=== PATIENT | male | born 1990 | race Caucasian/White ===

== ENCOUNTER 2016-06-05 12:32 | Inpatient (IN) | payer OTHER ==
[~2016-06-05] VITALS: Ht 182.9 cm; Wt 98.4 kg
[2016-06-05 13:10] LABS: MEAN CORPUSCULAR HEMOGLOBIN 29.6 pg (27.0-33.0); MEAN CORPUSCULAR HGB CONC 33.2 g/dl (32.0-36.5); MEAN CORPUSCULAR VOLUME 89.2 fl (80.0-96.0); RED CELL DISTRIBUTION WIDTH 12.3 % (11.5-14.5); WHITE BLOOD COUNT 5.4 K/mm3 (4.0-10.0)
[2016-06-05 13:23] LABS: AMPHETAMINES LEVEL URINE NEGATIVE (NEGATIVE); BENZODIAZEPINES URINE NEGATIVE (NEGATIVE); COCAINE METABOLITE URINE NEGATIVE (NEGATIVE); CONTROL LINE INT CTR LINE PRESENT; METHADONE URINE NEGATIVE (NEGATIVE); OPIATES URINE NEGATIVE (NEGATIVE); TRICYCLIC ANTIDEPRESS URINE NEGATIVE (NEGATIVE)
[2016-06-05 13:53] LABS: ALBUMIN 4.1 GM/DL (3.2-5.2); ALBUMIN/GLOBULIN RATIO 1.14 (1.00-1.93); ALKALINE PHOSPHATASE 85 U/L (45-117); ALT/SGPT 43 U/L (12-78); ANION GAP 9 MEQ/L (8-16); AST/SGOT 41 U/L (15-37); BILIRUBIN,DIRECT 0.1 MG/DL (0.0-0.2); BILIRUBIN,TOTAL 0.5 MG/DL (0.2-1.0); BLOOD UREA NITROGEN 13 MG/DL (7-18); CALCIUM LEVEL 8.8 MG/DL (8.5-10.1); CARBON DIOXIDE LEVEL 28 MEQ/L (21-32); CHLORIDE LEVEL 106 MEQ/L (98-107); GLOMERULAR FILTRATION RATE > 60.0 (>60); GLUCOSE, FASTING 61 MG/DL (70-105); POTASSIUM SERUM 4.4 MEQ/L (3.5-5.1); SODIUM LEVEL 143 MEQ/L (136-145); TOTAL PROTEIN 7.7 GM/DL (6.4-8.2)
--- NOTE | 2016-06-05 23:58 | EDDOCDS ---
Physician Documentation [facility] Name: Remy Medina Age: 26 yrs Sex: Male : 1990 Arrival Date: 06/05/2016 Time: 12:32 Bed OBSERVATION Private MD: Munira [facility] Disposition: 06/05/16 21:18 Hospitalization ordered by Tremaine Ramirez for Inpatient Admission. Preliminary diagnosis is Major depressive disorder, recurrent. - Bed requested for Admit. - Status is Inpatient Admission. ml3 - Condition is Stable. - Problem is an ongoing problem. - Symptoms are unchanged. HPI: 06/05 13:20 This 26 yrs old Male presents to ER via Walkin/Carried/Asstd with complaints pc of Psych Problem. 13:20 The history is obtained from the patient, transfer records. The patient presents to the emergency department with homicidal ideation. At their worst, the symptoms were moderate. In the emergency department, the symptoms are unchanged. 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 He was seen by [facility] and sent for evaluation. He denies feeling depressed but is frustrated. The patient has not experienced similar symptoms in the past. The patient has not recently seen a physician. Historical: - Allergies: no known allergies; - Home Meds: 1. none - PMHx: none; - PSHx: Shoulder Arthroscopy- Right; - The history from nurses notes was reviewed: and I agree with what is documented. - Social history: Smoking status: Patient uses tobacco products, current some day smoker. No barriers to communication noted, The patient speaks fluent Malay, Speaks appropriately for age. - : The pt / caregiver states he / she is not on anticoagulants. Home medication list is obtained from the patient. - Hospitalizations: : No recent hospitalization is reported. - Exposure Risk Screening:: None identified. - Immunization history:: All immunizations up-to-date. - Family history: Not pertinent. - Social history:: the patient smokes cigarettes the patient drinks alcohol. ROS: 13:20 All systems are negative except as listed. The psychiatric and neurological components pc are also addressed in the HPI. Exam: 13:20 General Appearance: alert, no acute distress. pc 13:20 ENT: ear, nose and throat normal, pharynx normal. 13:20 Eyes: pupils equal, round and reactive to light, extraocular motions intact. 13:20 Neck: The exam reveals no acute abnormalities. ROM is normal and painless. No nuchal rigidity is noted.. 13:20 Respiratory: breathing is even and unlabored, breath sounds are normal. 13:20 Cardiovascular: regular pulse rate, regular heart rhythm, normal heart sounds, equal and full pulses bilaterally. 13:20 Abdomen: soft, non-tender, no organomegaly, normal bowel sounds. 13:20 Skin: skin color is normal, warm, dry. 13:20 Extremities: The extremities have a grossly normal appearance, are non-tender, without acute ROM abnormalities. 13:20 Neuro: alert, oriented to person, place and time, cranial nerves normal as tested, no motor deficits, no sensory deficits. 13:20 Psych: affect is appropriate, mood is angry. Vital Signs: 12:34 BP 131 / 69; Pulse 61; Resp 18; Temp 98.9(O); Pulse Ox 99% on R/A; Weight 95.25 kg / ct3 209.99 lbs (R); Height 6 ft. 0 in. (182.88 cm) (R); Pain 0/10; 18:48 BP 157 / 66; Pulse 70; Resp 16; Temp 97.8(O); Pulse Ox 98% on R/A; nb2 12:34 Body Mass Index 28.48 (95.25 kg, 182.88 cm) ct3 MDM: 12:48 Consult PFS/PSA/Conference And Event Organiser: Patient's case requires discussion with on-call [facility] Psychiatrist ordered. 12:48 PSA/PFS to call Nursing Offender Employment Specialist, to enter patient data on [place] Safe Act if patient dwg involuntarily admitted or transferred for SI or HI ordered. 12:48 Confirm accurate psychiatric medication list and times of last dosage ordered. dwg 12:48 Detain Pt Until Medically/PFS Cleared ordered. dwg 12:48 REGULAR DIET PLASTIC LUQUE+DIET ordered. EDMS 12:49 Acetaminophen Level Ordered. EDMS 12:49 Basic Metabolic Profile Ordered. EDMS 12:49 Complete Blood Count Ordered. EDMS 12:50 Drug Eval Toxicology ED Only Ordered. EDMS 12:50 Ethyl Alcohol (ethanol) Ordered. EDMS 12:50 Liver Profile Ordered. EDMS 12:50 Salicylate Level Ordered. EDMS 12:50 Thyroid Stimulating Hormone Ordered. EDMS 13:20 Differential diagnosis: homicidal ideation, adjustment disorder. Plan: labs, PFS eval. pc 14:22 Acetaminophen Level Reviewed. pc 14:22 Basic Metabolic Profile Reviewed. pc 14:22 Liver Profile Reviewed. pc 14:22 Salicylate Level Reviewed. pc 14:22 Complete Blood Count Reviewed. pc 14:22 Drug Eval Toxicology ED Only Reviewed. pc 14:22 Ethyl Alcohol (ethanol) Reviewed. pc 14:22 Thyroid Stimulating Hormone Reviewed. pc 16:36 Financial registration complete. [email or web address] 17:09 [facility] Payment Agreement was scanned into [employer] and attached to record. [email or web address] 17:18 REGULAR DIET PLASTIC LUQUE+DIET ordered. EDMS 19:54 Consult PFS/PSA/Conference And Event Organiser: Patient's case requires discussion with on-call rb Psychiatrist complete. 19:54 PSA/PFS to call Nursing Offender Employment Specialist, to enter patient data [place] Safe [place] if patient rb involuntarily admitted or transferred for SI or HI complete. 20:39 Admit to [facility] LICENSE [facility]: ordered. EDMS 21:10 [facility] Legal paperwork was scanned into [employer] and attached to record. rb 21:19 BED REQUEST+ADM ordered. EDMS Signatures: Dispatcher [employer] EDMS Chung Jorgensen MD MD pc Greene, Daniel, RN RN [facility] Elke Wetzel PSA PSA rb Robbin Logan, Rolled Glass Crosscutter Unit ml3 Lupe Menjivar,RN RN kr3 Sreekanth Winston, DO cs11 Lou Burgess, Reg Reg [email or web address] The chart was reviewed and I authenticate all verbal orders and agree with the evaluation and treatment provided.Corrections: (The following items were deleted from the chart) 13:16 12:48 Consult PFS/PSA/Conference And Event Organiser ordered. [facility] Attachments: 17:09 [facility] Payment Agreement [email or web address] MTDD
--- NOTE | 2016-06-05 23:58 | EDDOCDS ---
Nurse's Notes [facility] Name: Remy Mednia Age: 26 yrs Sex: Male : 1990 Arrival Date: 06/05/2016 Time: 12:32 Bed OBSERVATION Private MD: Munira [facility] Diagnosis: Major depressive disorder, recurrent Presentation: 06/05 12:38 Presenting complaint: Patient states: is homicidal with couple people he is interested kr3 in hurting. Mental Health Triage Level: Level 2: The patient displays active homicidal ideations. Adult Sepsis Screening: The patient does not have new or worsening altered mentation. Patient's respiratory rate is less than 22. Systolic blood pressure is greater than 100. Patient has a qSOFA score of 0- Negative Sepsis Screen. Suicide/Homicide risk assessment- The patient admits to and/or has been reported to be having homicidal ideations. The patient reports that he/she has not been admitted to an inpatient mental health facility in the last 30 days. The patient reports that he/she does not have a recent or current history of substance abuse. The patient reports that he/she has no prior history of suicide attempt and/or organized plan. The patient reports that he/she has not experienced a significant life altering event in the last 30 days. 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 Transition of care: patient was not received from another setting of care. 12:38 Method Of Arrival: Walkin/Carried/Asstd kr3 12:38 Acuity: JACEK Level 3 kr3 Triage Assessment: 12:40 General: Appears in no apparent distress, comfortable, Behavior is cooperative. Pain: kr3 Denies pain. Pt Declines HIV testing. The patient is triaged at the bedside. See Assessment in Nurses Notes section of ED record. Neurological: Level of Consciousness is awake, alert. Respiratory: Respiratory effort is even, unlabored. Derm: Skin is pink, warm & dry. Historical: - Allergies: no known allergies; - Home Meds: 1. none - PMHx: none; - PSHx: Shoulder Arthroscopy- Right; - The history from nurses notes was reviewed: and I agree with what is documented. - Social history: Smoking status: Patient uses tobacco products, current some day smoker. No barriers to communication noted, The patient speaks fluent [place], Speaks appropriately for age. - : The pt / caregiver states he / she is not on anticoagulants. Home medication list is obtained from the patient. - Hospitalizations: : No recent hospitalization is reported. - Exposure Risk Screening:: None identified. - Immunization history:: All immunizations up-to-date. - Family history: Not pertinent. - Social history:: the patient smokes cigarettes the patient drinks alcohol. Screenin:39 Screening information is obtained from the patient. Fall risk: No risks identified. ttb Assistance ADL's: requires no assistance with activities of daily living. Abuse/DV Screen: The patient / caregiver reports he/she is: not in a situation that causes fear, pain or injury. Nutritional screening: No deficits noted. Advance Directives: Currently, there is no health care proxy. home support is adequate. Assessment: 16:39 General: Appears in no apparent distress, well nourished, well groomed, Behavior is ttb appropriate for age, cooperative, flat, pleasant, quiet. Pain: Denies pain. Neurological: Level of Consciousness is awake, alert, Speech is normal, Facial symmetry appears normal. Cardiovascular: Heart tones S1 S2 present Chest pain is denied. Respiratory: Airway is patent Breath sounds are clear bilaterally. Denies cough, shortness of breath. GI: Denies intolerance of fluids, intolerance of food, nausea, vomiting, pain. Derm: Skin is normal. 17:30 Reassessment: Patient appears in no apparent distress at this time. pt with LEONA in ttb room. NAD noted. No needs at this time.. 19:02 General: report given to VICKY Pierce to continue care. ttb 20:00 General: Appears in no apparent distress, comfortable, Behavior is appropriate for age, rw1 cooperative. Pain: Denies pain. Neurological: Level of Consciousness is awake, alert, obeys commands, Oriented to person, place, time. Respiratory: Airway is patent Respiratory effort is even, unlabored. Derm: Skin is pink, warm & dry. normal. 21:01 Reassessment: Patient appears in no apparent distress at this time. resting quietly on rw1 stretcher, safety maintained will monitor.. 23:35 General: Appears in no apparent distress, comfortable, Behavior is cooperative, mv5 pleasant, Pt resting on stretcher, has no complaints at this time, denies pain.. Pain: Denies pain. Neurological: Level of Consciousness is awake, alert, Oriented to person, place, time, Speech is normal. Respiratory: Airway is patent Respiratory effort is even, unlabored. Derm: Skin is pink, warm & dry. Mental Health Eval: 19:55 Mental health consult is initiated at 19:27. 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 [facility] Behavioral Health: The patient is not an established patient of [facility] Behavioral Health. Referral Information: Evaluation referral is generated by the patient's therapist Darron Hawk \\T\\ [facility]. The patient was referred for evaluation because Pt presented to ED after an unscheduled walkin \\T\\ on . [facility]. Pt stated +HI towards [employer]. and others. Pt reported "anger has been building through out my life". "He seems to be the focal one now". Pt stated his anger is now affecting his Marriage, work, relationships. Pt reported has no warning prior to blowing up. Will blow up over nothing, becomes physical; breaking things, broke a window in April. Pt stated more difficult to stay in control. Pt afraid he will do something serious. Pt stated emotionally ; never grieved Mother's (she of aneurism 2012). Pt reported was very close to his Mother. Pt reported in [employer] for 7+ years, deployed 2 times; [place] 04/2010-02/2011 and [place] 09/03-06/07. 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 . 20:22 Referral Information: The patient was referred for evaluation because Pt stated "in and rb out of therapy my whole life, gone through anger management a number of times". . Subjective: The patients chief complaint is Depressed, increased anxiety, Anger issues, +HI. Delusions are denied. Patient's mood is angry, anxious, depressed, Hallucinations are denied. Mental Health history: anxiety, depression, Mental Health Admissions: None. Current Outpatient Mental Health Services: Therapist / Agency: pt has initial apt 06/06/16 with [facility] \\T\\ [facility].. Current living environment is The patient currently lives with his / her spouse, of 5 years, 2 step dgts; 16 & 17 y/o, and 3yr old son. . The patient is . Patient presents to Emergency Department with the following symptoms within the past 2 weeks: anger, anxiety, depressed mood, Homicidal ideation toward their [employer]. poor impulse control, relational problem. Substance abuse: Pt denies. Mental status exam: Patients appearance is appropriate, Patient's behavior is cooperative, Speech is slow. Affect is flat. Mood is angry. anxious. depressed. Hallucinations are denied. Appetite is normal. Memory is good. Energy level is normal. Content of thought is depressive. +HI Thought process is characterized by flight of ideas. Cognitive level is oriented to person, place, time and situation Patient's insight is poor. Judgement is fair. Rapport with interviewer is good. Suicidal Ideation is not present. Homicidal ideation is present without a specific plan. Disposition: Medically cleared for disposition by Sreekanth Winston DO Psychiatric Consult is performed by phone with Dr Tremaine Ramirez. [facility] Admission Criteria: The patient displays homicidal ideation. The patient displays behavior that is destructive to property. The patient requires continuous observation and/or control to protect self, others or property. Legal Status: Patient's legal status will be Emergency admission: . [place] Safe Act: [place] Safe Act is applicable to this patient. The patient poses a risk to self or other and the Nursing Contribution Solicitor has been notified. He/She will enter the patient's data. 20:41 DSM-V Differential Diagnosis: Unspecified Depressive Disorder (F32.9). Insurance rb Pre-Certification: Not Required. Awaiting: transfer to [facility]. Vital Signs: 12:34 BP 131 / 69; Pulse 61; Resp 18; Temp 98.9(O); Pulse Ox 99% on R/A; Weight 95.25 kg (R); ct3 Height 6 ft. 0 in. (182.88 cm) (R); Pain 0/10; 18:48 BP 157 / 66; Pulse 70; Resp 16; Temp 97.8(O); Pulse Ox 98% on R/A; nb2 12:34 Body Mass Index 28.48 (95.25 kg, 182.88 cm) ct3 Vitals: 12:34 Log In Time: June 05, 2016 at 12:31. RN notified that patient meets Red Flag ct3 criteria. ED Course: 12:33 Patient visited by Vale Mcgregor PCA. ct3 12:33 Patient moved to Waiting ct3 12:34 JAYE Lombardo is Private Physician. ct3 12:36 Patient moved to 31 ct3 12:37 Patient moved to 30 kr3 12:39 Triage Initiated kr3 12:46 Psych Safety Check: Location: Medical Room. Visual Assessment: Cooperative. jlm 12:47 Patient visited by Lori Khan, Rn Intake. jlm 12:51 Psych Safety Check: Location: Bathroom. Visual Assessment: Cooperative. jlm 12:52 Patient visited by Lori Khan, Rn Intake. jlm 13:01 Acetaminophen Level Sent. dwg 13:01 Basic Metabolic Profile Sent. dwg 13:01 Complete Blood Count Sent. dwg 13:01 Drug Eval Toxicology ED Only Sent. dwg 13:01 Ethyl Alcohol (ethanol) Sent. dwg 13:01 Liver Profile Sent. dwg 13:01 Salicylate Level Sent. dwg 13:01 Thyroid Stimulating Hormone Sent. dwg 13:04 Patient visited by Kelly Armendariz. nb2 13:04 Psych Safety Check: Location: Medical Room. Visual Assessment: Cooperative. nb2 13:15 Chung Jorgensen MD is Attending Physician. pc 13:15 Patient visited by Chung Jorgensen MD. pc 13:15 Psych Safety Check: Location: Medical Room. Visual Assessment:. nb2 13:16 Patient visited by Kelly Armendariz. nb2 13:31 Psych Safety Check: Location: Medical Room. Visual Assessment: Cooperative, pt given 2 nb2 kiwis and noodles in tupperware from his lunchbox in his locker by PARTHA Johns. 13:32 Patient visited by Kelly Armendariz. nb2 13:44 Patient visited by Kelly Armendariz. nb2 13:44 Psych Safety Check: Location: Medical Room. Visual Assessment: Cooperative. nb2 14:00 Patient visited by Kelly Armendariz. nb2 14:00 Psych Safety Check: Location: Medical Room. Visual Assessment: Cooperative. nb2 14:15 Patient visited by Kelly Armendariz. nb2 14:15 Psych Safety Check: Location: Medical Room. Visual Assessment: Cooperative. nb2 14:30 Patient visited by Kelly Armendariz. nb2 14:30 Psych Safety Check: Location: Medical Room. Visual Assessment: Cooperative. nb2 14:45 Psych Safety Check: Location: Medical Room. Visual Assessment: Cooperative. nb2 14:47 Patient visited by Kelly Armendariz. nb2 15:00 Patient visited by Kelly Armendariz. nb2 15:00 Psych Safety Check: Location: Medical Room. Visual Assessment: Cooperative. nb2 15:15 Patient visited by Kelly Armendariz. nb2 15:15 Psych Safety Check: Location: Medical Room. Visual Assessment: Cooperative. nb2 15:29 Patient visited by Kelly Armendariz. nb2 15:29 Psych Safety Check: Location: Medical Room. Visual Assessment: Cooperative. nb2 15:45 Patient visited by Kelly Armendariz. nb2 15:45 Psych Safety Check: Location: Medical Room. Visual Assessment: Cooperative. nb2 16:00 Psych Safety Check: Location: Medical Room. Visual Assessment: Cooperative. jlm 16:01 Patient visited by Lori Khan Unit Clerk. jlm 16:17 Patient visited by Lori Khan Unit Clerk. jlm 16:17 Psych Safety Check: Location: Medical Room. Visual Assessment: Cooperative. jlm 16:32 Psych Safety Check: Location: Medical Room. Visual Assessment: Cooperative. jlm 16:33 Patient visited by Lori Khan Unit Clerk. jlm 16:39 The patient / caregiver is instructed regarding the plan of care and ED course. ttb Accompanied by LEONA, Patient has correct armband on for positive identification. Placed in gown. Placed in psych safe attire. Security observing. 16:39 No IV's were initiated during this patient's visit. Labs drawn. (by ED staff). Urine ttb collected. 16:42 Patient visited by Liberty Hutchinson RN. ttb 17:00 Patient visited by Lori Khan Unit Clerk. jlm 17:00 Psych Safety Check: Location: Medical Room. Visual Assessment: Cooperative. jlm 17:09 [facility] Payment Agreement was scanned into [employer] and attached to record. ks16 17:16 Patient visited by Lori Khan Unit Clerk. jlm 17:16 Psych Safety Check: Location: Medical Room. Visual Assessment: Cooperative. jlm 17:29 Patient visited by Lori Khan Unit Clerk. jlm 17:30 Accompanied by LEONA, Security observing. ttb 17:44 Patient visited by Lori Khan Unit Clerk. jlm 17:44 Psych Safety Check: Location: Medical Room. Visual Assessment: Cooperative. jlm 17:55 Patient visited by Lori Khan Unit Clerk. jlm 17:55 Diet: Patient given regular meal. jlm 18:06 Patient visited by Lori Khan Rn Intake. jlm 18:06 Psych Safety Check: Location: Medical Room. Visual Assessment: Cooperative. jlm 18:07 Patient visited by Lori Khan Unit Clerk. jlm 18:11 Psych Safety Check: Location: Bathroom. Visual Assessment: Cooperative. jlm 18:12 Patient visited by Lori Khan Rn Intake. jlm 18:18 Patient visited by Lori Khan Unit Clerk. jlm 18:18 Psych Safety Check: Location: Medical Room. Visual Assessment: Cooperative. jlm 18:30 Psych Safety Check: Location: Psych Room. Visual Assessment: Cooperative. tmm1 18:32 Patient visited by Lori Khan Unit Clerk. jlm 18:34 Patient moved to [facility] ttb 18:45 Psych Safety Check: Location: Psych Room. Visual Assessment: Cooperative. tmm1 18:48 Patient visited by Kelly Armendariz. nb2 18:56 Patient visited by Liberty Hutchinson RN. ttb 18:58 Attending Physician role handed off by Chung Jorgensen MD cs11 18:58 Sreekanth Winston DO is Attending Physician. cs11 18:58 Patient moved to [facility] cs11 18:59 Isaac Cullen LPN is Primary Nurse. rw1 19:02 Patient visited by Sharon Oliveira PCA. tmm1 19:02 Psych Safety Check: Location: Psych Room. Visual Assessment: Cooperative. tmm1 19:15 Psych Safety Check: Location: Psych Room. Visual Assessment:. tmm1 19:32 Psych Safety Check: Location: Psych Room. Visual Assessment: Cooperative. tmm1 19:46 Psych Safety Check: Location: Psych Room. Visual Assessment: Cooperative. tmm1 20:30 Psych Safety Check: Location: Psych Room. Visual Assessment: Cooperative. tmm1 20:40 Patient visited by Isaac Cullen LPN. rw1 20:45 Psych Safety Check: Location: Psych Room. Visual Assessment: Cooperative. tmm1 21:00 Psych Safety Check: Location: Psych Room. Visual Assessment: Cooperative. tmm1 21:01 Patient visited by Isaac Cullen LPN. rw1 21:10 [facility] Legal paperwork was scanned into [employer] and attached to record. rb 21:15 Psych Safety Check: Location: Psych Room. Visual Assessment: Cooperative. tmm1 21:16 Patient visited by Isaac Cullen LPN. rw1 21:18 Tremaine Ramirez is Hospitalizing Provider. cs11 21:21 role handed off by Lupillo Morales PSA kb5 21:30 Psych Safety Check: Location: Psych Room. Visual Assessment: Cooperative. tmm1 21:45 Psych Safety Check: Location: Psych Room. Visual Assessment: Cooperative. tmm1 22:00 Psych Safety Check: Location: Psych Room. Visual Assessment: Cooperative. tmm1 22:15 Psych Safety Check: Location: Psych Room. Visual Assessment: Cooperative. tmm1 22:30 Psych Safety Check: Location: Psych Room. Visual Assessment: Cooperative. tmm1 22:45 Psych Safety Check: Location: Psych Room. Visual Assessment: Cooperative. tmm1 23:00 Psych Safety Check: Location: Psych Room. Visual Assessment: Cooperative. tr 23:16 Patient visited by Param Loera. tr 23:49 Patient visited by Param Loera. tr Attachments: 21:10 [facility] Legal paperwork rb Order Results: Lab Order: Acetaminophen Level; SPEC'M 06/05/16 12:58 Test: ACETAMINOPHEN LEVEL; Value: < 2.0; Range: 10.0-30.0; Abnormal: Below low normal; Units: UG/ML; Status: F Lab Order: Basic Metabolic Profile; SPEC'M 06/05/16 12:58 Test: GLUCOSE, FASTING; Value: 61; Range: 70-105; Abnormal: Below low normal; Units: MG/DL; Status: F Test: BLOOD UREA NITROGEN; Value: 13; Range: 7-18; Units: MG/DL; Status: F Test: CREATININE FOR GFR; Value: 1.10; Range: 0.70-1.30; Units: MG/DL; Status: F Test: GLOMERULAR FILTRATION RATE; Value: > 60.0; Range: >60; Status: F Test: SODIUM LEVEL; Value: 143; Range: 136-145; Units: MEQ/L; Status: F Test: POTASSIUM SERUM; Value: 4.4; Range: 3.5-5.1; Units: MEQ/L; Status: F Test: CHLORIDE LEVEL; Value: 106; Range: 98-107; Units: MEQ/L; Status: F Test: CARBON DIOXIDE LEVEL; Value: 28; Range: 21-32; Units: MEQ/L; Status: F Test: ANION GAP; Value: 9; Range: 8-16; Units: MEQ/L; Status: F Test: CALCIUM LEVEL; Value: 8.8; Range: 8.5-10.1; Units: MG/DL; Status: F Test Note: ; Units are mL/min/1.73 m2 Chronic Kidney Disease Staging per NKF: Stage I & II GFR >=60 Normal to Mildly Decreased Stage III GFR 30-59 Moderately Decreased Stage IV GFR 15-29 Severely Decreased Stage V GFR <15 Very Little GFR Left ESRD GFR <15 on [employer] Lab Order: Complete Blood Count; SPEC'M 06/05/16 12:58 Test: WHITE BLOOD COUNT; Value: 5.4; Range: 4.0-10.0; Units: K/mm3; Status: F Test: RED BLOOD COUNT; Value: 5.04; Range: 4.30-6.10; Units: M/mm3; Status: F Test: HEMOGLOBIN; Value: 14.9; Range: 14.0-18.0; Units: g/dl; Status: F Test: HEMATOCRIT; Value: 45.0; Range: 42.0-52.0; Units: %; Status: F Test: MEAN CORPUSCULAR VOLUME; Value: 89.2; Range: 80.0-96.0; Units: fl; Status: F Test: MEAN CORPUSCULAR HEMOGLOBIN; Value: 29.6; Range: 27.0-33.0; Units: pg; Status: F Test: MEAN CORPUSCULAR HGB CONC; Value: 33.2; Range: 32.0-36.5; Units: g/dl; Status: F Test: RED CELL DISTRIBUTION WIDTH; Value: 12.3; Range: 11.5-14.5; Units: %; Status: F Test: PLATELET COUNT, AUTOMATED; Value: 206; Range: 150-450; Units: k/mm3; Status: F Lab Order: Drug Eval Toxicology ED Only; SPEC'M 06/05/16 12:58 Test: AMPHETAMINES LEVEL URINE; Value: NEGATIVE; Range: NEGATIVE; Status: F Test: BARBITURATES URINE; Value: NEGATIVE; Range: NEGATIVE; Status: F Test: BENZODIAZEPINES URINE; Value: NEGATIVE; Range: NEGATIVE; Status: F Test: CANNABINOIDS URINE; Value: NEGATIVE; Range: NEGATIVE; Status: F Test: COCAINE METABOLITE URINE; Value: NEGATIVE; Range: NEGATIVE; Status: F Test: METHADONE URINE; Value: NEGATIVE; Range: NEGATIVE; Status: F Test: OPIATES URINE; Value: NEGATIVE; Range: NEGATIVE; Status: F Test: TRICYCLIC ANTIDEPRESS URINE; Value: NEGATIVE; Range: NEGATIVE; Status: F Test Note: ; ALL PRESUMPTIVE POSITIVE FINDINGS ARE UNCONFIRMED NORMAL VALUES THRESHOLD IN NG/ML AMPHETAMINES 1000 METHAMPHETAMINES 1000 BARBITURATES 300 BENZODIAZEPINES 300 CANNABINOIDS (THC) 50 COCAINE METABOLITE 300 METHADONE 300 OPIATES 300 PHENCYCLIDINE 25 TRICYCLIC ANTIDEPRESSANTS 1000 RESULTS ARE FOR MEDICAL PURPOSES ONLY. ALL URINE SPECIMENS WILL BE SAVED FOR 3 DAYS. IF CONFIRMATION OF A PRESUMPTIVE POSTIVE SCREEN RESULT IS DESIRED, CALL CHEMISTRY ([phone]) AND REQUEST URINE TO BE SENT TO REFERENCE LAB. FOR A LIST OF CLOSELY RELATED COMPOUNDS PLEASE CALL THE LAB. Lab Order: Ethyl Alcohol (ethanol); SPEC'M 06/05/16 12:58 Test: ETHYL ALCOHOL (ETHANOL); Value: < 0.003; Range: 0.000-0.010; Units: %; Status: F Lab Order: Liver Profile; SPEC'M 06/05/16 12:58 Test: AST/SGOT; Value: 41; Range: 15-37; Abnormal: Above high normal; Units: U/L; Status: F Test: ALT/SGPT; Value: 43; Range: 12-78; Units: U/L; Status: F Test: ALKALINE PHOSPHATASE; Value: 85; Range: 45-117; Units: U/L; Status: F Test: BILIRUBIN,TOTAL; Value: 0.5; Range: 0.2-1.0; Units: MG/DL; Status: F Test: BILIRUBIN,DIRECT; Value: 0.1; Range: 0.0-0.2; Units: MG/DL; Status: F Test: TOTAL PROTEIN; Value: 7.7; Range: 6.4-8.2; Units: GM/DL; Status: F Test: ALBUMIN; Value: 4.1; Range: 3.2-5.2; Units: GM/DL; Status: F Test: ALBUMIN/GLOBULIN RATIO; Value: 1.14; Range: 1.00-1.93; Status: F Lab Order: Salicylate Level; SPEC'M 06/05/16 12:58 Test: SALICYLATE LEVEL; Value: < 1.7; Range: 5.0-30.0; Abnormal: Below low normal; Units: MG/DL; Status: F Lab Order: Thyroid Stimulating Hormone; SPEC'M 06/05/16 12:58 Test: THYROID STIMULATING HORMONE; Value: 2.200; Range: 0.358-3.740; Units: uIU/ML; Status: F Outcome: 21:18 Decision to Hospitalize by Provider. cs11 23:57 Patient left the ED. ml3 Signatures: Chung Jorgensen MD MD pc Greene, Daniel, RN RN dwg Elke Wetzel, PSA PSA rb Param Loera Mary-Elizabeth, Rn Intake Unit ml3 Lupe Menjivar,RN RN kr3 Isaac Cullen LPN [employer] LABORER/DESIGNER rw1 Giuseppe Toribio, WATER SYSTEMS ENGINEER WATER SYSTEMS ENGINEER kb5 Vale Mcgregor, WATER SYSTEMS ENGINEER WATER SYSTEMS ENGINEER ct3 Sreekanth Winston, DO DO cs11 Liberty Hutchinson, RN RN ttb Paco Oliveirasa, WATER SYSTEMS ENGINEER WATER SYSTEMS ENGINEER tmm1 Lori Khan, Rn Intake Unit jl Lou Burgess, Reg Reg ks16 Kelly Armendariz nb2 Shima Chakraborty,RN RN mv5 Corrections: (The following items were deleted from the chart) 20:38 19:55 Referral Information: Evaluation referral is generated by the patient's therapist aaron Hawk [facility] The patient was referred for evaluation because Pt presented to ED after an unscheduled walkin \\T\\ on [place]. Pt stated +HI towards [employer]. and others. Pt reported "anger has been building through out my life". "He seems to be the focal one now". Pt stated his anger is now affecting his Marriage, work, relationships. Pt reported has no warning prior to blowing up . rb MTDD
[2016-06-06] MEDS ORDERED: ACETAMINOPHEN TAB 650MG DOSE (2X325MG) PO PRN (02:45)
[2016-06-06] MEDS ORDERED: MOM 30ML SUSPENSION UDC PO PRN (02:45)
[2016-06-06] MEDS ORDERED: MAALOX 30 ML SUSP *UDC PO PRN (02:45)
[2016-06-06] MEDS ORDERED: LORazepam 1 MG TAB PO PRN (02:45)
[2016-06-06 03:42] VITALS: BP 127/65
--- NOTE | 2016-06-06 11:27 | HPEPDOC ---
Medical History and Physical Date of Admission Jun 05, 2016 at 23:50 History and Physical PCP: [facility]. ATTENDING: Dr. Indra Chapa HPI:26yoM admitted to [facility] for unspecified depressive disorder, being medically examined today. No acute medical complaints today. Denies any fevers, chills, weakness, fatigue, BILLINGS, CP, SOB, cough, palpitations, abdominal pain, N/V/D or changes in bowel or bladder habits. 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 Deployed [place], [place]. Tobacco use: Denies ETOH: 1 bottle per weekend none since April Illicit Drugs: Denies IV Drug Use: Denies Tattoos done unprofessionally: Denies FAMHX: Mother: , aneurysm 2012. Father: Alive, well Siblings: Alive, well Children: Alive, well Unexpected deaths due to medical reasons: None. ROS: As noted in HPI, otherwise 11pt ROS of systems reviewed and unremarkable. PE: GEN: 26yoM, appears stated age. Well-nourished, well developed. No acute distress. Alert and oriented x 3. Pleasant, interactive. HEENT: Normocephalic, atraumatic. Pupils are equal, round, and reactive to light. Extraocular movements are intact. No nystagmus appreciated. Sclera are nonicteric. Conjunctiva without injection. Nose midline. Nasal turbinates without bogginess. EACs both patent BL. TMs both visualized and rowell with good cone of light, no bulging or erythema. No facial asymmetry. Moist mucous membranes. Dentition fair. Pharynx pink and moist, no cobblestoning. Neck supple , trachea midline. No lymphadenopathy or thyromegaly appreciated. CHEST: Regular rate and rhythm, +S1, +S2 LUNGS: Clear to auscultation bilaterally. No wheezes, rales, or rhonchi. Breathing appears symmetric and easy. Patient is speaking in full sentences. No accessory muscle use. ABD: Round, soft, non-tender, non-distended. +Bowel sounds throughout. No rebound or guarding. No costovertebral angle tenderness. EXT: Pulses 2+ bilaterally dorsalis pedis and radial. No lower extremity edema appreciated. SKIN: [place], dry, warm. Capillary refill <2sec. No rashes. NEURO: Alert and oriented x 3. Cranial nerves III-XII are intact. No focal deficits appreciated. EKG: pending. A&P: 26yoM admitted to [facility] for unspecified depressive disorder 1. Psych. Plan per Psychiatry. Obtain baseline EKG to assure the safety of psychiatric medications as they can prolong the QT interval. 2. Elevated LFT. Recheck CMP. 3. Follow up with PCP on discharge. [facility]. 4. Staff member present throughout exam, Pranav herrera. Vital Signs Vital Signs Label Value Date Time Patient Temperature 95.1 degrees F 06/06/16341 Temperature Source Tympanic 06/06/16341 Pulse 60 06/06/16341 Respiratory Rate 18 bpm 06/06/16341 Blood Pressure Assessment 127/65 (85) 06/06/16 034 Laboratory Data Labs 24H Laboratory Tests 2 06/05/16 12:58: Acetaminophen Level < 2.0L, Aspartate Amino Transf (AST/SGOT) 41H, Alanine Aminotransferase (ALT/SGPT) 43, Alkaline Phosphatase 85, Total Bilirubin 0.5, Direct Bilirubin 0.1, Albumin 4.1, Albumin/Globulin Ratio 1.14, Anion Gap 9, Calcium Level 8.8, Ethyl Alcohol Level < 0.003, Glomerular Filtration Rate > 60.0, Salicylates Level < 1.7L, Thyroid Stimulating Hormone (TSH) 2.200, Total Protein 7.7, Urine Amphetamine Level NEGATIVE, Urine Benzodiazepines Screen NEGATIVE, Urine Cannabinoids NEGATIVE, Urine Cocaine Metabolite NEGATIVE, Urine Opiates Screen NEGATIVE, Urine Barbiturates, Qualitative NEGATIVE, Urine Methadone Screen NEGATIVE, Urine Tricyclic Antidepressants NEGATIVE CBC/BMP Laboratory Tests 06/05/16 12:58 Red Blood Count 5.04, Mean Corpuscular Volume 89.2, Mean Corpuscular Hemoglobin 29.6, Mean Corpuscular Hemoglobin Concent 33.2, Red Cell Distribution Width 12.3 Home Medications No Active Prescriptions or Reported Meds Allergies Coded Allergies: No Known Allergies (Unverified , 06/05/16) Brittani Godoy Jun 06, 2016 11:27 No Known Allergies (Unverified , 06/05/16) Brittani Godoy Jun 06, 2016 11:27
--- NOTE | 2016-06-06 17:20 | HPEPDOC ---
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 While there patient reported HI towards his [employer]oon Sgt., but reports he is the current focus, adding he has had others that he had homicidal ideations towards in the past. Patient reports never acting on these ideations. He reports no arrests for assault or domestic violence. He reports a history in adolescence of being in numerous fights with schoolmates. He denies assaulting peers or staff at school or family at home. Pt reported "anger has been building through out my life". Pt stated his anger is now affecting his Marriage, work, relationships. Patient reports his children are afraid of him and he reports multiple episodes of verbal abuse towards his and destruction of property. He reported he has no warning prior to blowing up. Will blow up over nothing, becomes physical ; breaking things, broke a window in April. Pt stated it has become more difficult to stay in control. Pt afraid he will do something serious. 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 Pt. stated feeling emotionally ; never grieved Mother's (she of aneurism 2012). Pt reported was very close to his Mother. He reports his dad abandoned the family when he was 10 months old. He holds much respect for his mother raising him as a single parent. Patient currently lives with his spouse, of 5 years, 2 step dgts; 16 & 17 y/o, and 3yr old son. Patient reports they are protective factor which keeps him from his anger to escalate to a physical altercation. Patient is committed to being engaged in his mental health care for his family. He is interested in psychotherapy to examine the etiology of his anger, grieve the of his mother and discuss his father who abandoned him. Patient has been appropriate in statements and behavior. No signs of psychotic symptoms reported or observed. Patient is amenable to initiation of psychotropic meds. He denies SI and HI. PAST PSYCHIATRIC HISTORY: Prior Psychiatric Disorder: Previous diagnoses of depression and insomnia Outpatient Treatment: Patient seen in [facility], since 2010 Inpatient: This is patient's first Suicidal/Self injurious behaviors: Patient denies Psychotropic Medication History: Ambien HOME MEDICATIONS: None ALLERGIES: NKDA PMHx: Depression Alcohol use, socially, no history of abuse PSHX: Right shoulder arthroscopy SOCHX: In [employer] for 7+ years, deployed 2 times; [place] 04/2010-02/2011 and [place] 09/03-. 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 . 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 Deployed [place], [place]. Tobacco use: Denies ETOH: 1 bottle per weekend none since April Illicit Drugs: Denies IV Drug Use: Denies Tattoos done unprofessionally: Denies FAMHX: Mother: , aneurysm 2012. Father: Alive, well Siblings: Alive, well Children: Alive, well Unexpected deaths due to medical reasons: None. VITAL SIGNS: Within normal limits LABORATORY DATA: Please see below. MENTAL STATUS EXAMINATION: Patient is a 26-year-old male who appears stated age, dressed in hospital attire, anxious but cooperative Speech: Is regular rate and rhythm, spontaneous Thought processes: Linear and goal-directed Thought content: Anxious to get an understanding of why he has such uncontrollable anger Orientation: Alert and oriented to time, place and person and situation Recent and remote memory: Intact. Immediate short-term and long-term memory is: intact. Attention span and concentration: fair. Language: Normal. Fund of knowledge: good. Mood: depressed /anxious Affect: Agitated PROBLEM LIST: 1. Homicidal ideations. 2. Depression. 3. Anxiety. 4. Impulsive anger ASSESSMENT: -Bipolar 2 d/o, MRE depressed w/o PFs -Rule out personality disorder unspecified, cluster B traits PLAN: 1.~ ~ Patient was admitted on a 9.30 legal status, 2.~ ~ Complete history was obtained. 3.~ ~ With patients permission, family will be contacted and database will be expanded. 4.~ ~ Patient gives informed consent to start Depakote 250mg po qam and 500mg po qhs for mood stabilization. 5.~ ~ Patient will be provided with protected environment. 6.~ ~ Patient will be treated with individual, group, and milieu therapies. 7.~ ~ Patient will receive supportive psych-education. 8.~ ~ Discharge planning will commence immediately. 9.~ ~ Length of patients stay will be between 3-5 days. 10.~ Outpatient follow-up treatment will be strongly recommended. Medications No Active Prescriptions or Reported Meds Allergies Coded Allergies: No Known Allergies (Unverified , 06/05/16) MYNOR CERVANTES MD Jun 06, 2016 16:50 HOME MEDICATIONS: None ALLERGIES: NKDA PMHx: History of alcohol abuse History of cannabis abuse Tobacco use PSHX: Denies SOCHX: Recently homeless due to being kicked out by his girlfriend for getting DUI in her car. per chart -Patient was raised by both parents until they at age 12 and after the of his brother. Patient reports normal childhood until he started using drugs. Denies any abuse or neglect. Patient reports that he quit school at 11th grade because of his early years of drugs. He was living with his girlfriend and three children in [place]. He moved to [place] to help his father in 2014 shortly after the of his mother. 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 Tobacco use: One pack per day ETOH: At least 12 beers per day, usually more for the past 1-1/2-2 years Recent DUI, missed court date due to this admission, letter sent to the court No history of substance abuse treatment programs No history of alcohol withdrawal symptoms No history of DTs No history of alcohol withdrawal seizure Longest period of sobriety - 3 years Illicit Drugs: Marijuana daily user IV Drug Use: Denies Tattoos done unprofessionally: 1 FAMHX: Patient does not recall anybody in his family having any psychiatric problems, but says that his father and his mother had an alcohol problem. Mother: in 2014 Father: Alive, chronic bronchitis, alcoholism Siblings: 2 brothers, 2 sisters Alive, history of alcoholism. One brother history of heart failure. One sister heroin overdose VITAL SIGNS: Within normal limits LABORATORY DATA: Please see below. MENTAL STATUS EXAMINATION: Patient is a 28-year-old male who appears stated age, dressed in hospital attire, notably anxious Speech: Is regular rate and rhythm, spontaneous Thought processes: Mostly linear, circumstantial at times Thought content: Frustration and distressed by auditory hallucinations Orientation: Alert and oriented to time, place and person and situation Recent and remote memory: Intact. Immediate short-term and long-term memory is: intact. Attention span and concentration: fair. Language: Normal. Fund of knowledge: good. Mood: depressed /anxious Affect: anxious . PROBLEM LIST: 1. Suicidal ideations. 2. Depression. 3. Anxiety. 4. Altered perceptions(AHs). -ASSESSMENT: -Schizophrenia, decompensated -Alcohol use disorder, severe -Alcohol withdrawal -Cannabis use disorder, severe PLAN: 1.~ ~ Patient was admitted on a 01.19 legal status, 2.~ ~ Complete history was obtained. 3.~ ~ With patients permission, family will be contacted and database will be expanded. Will discuss with girlfriend who patient lives with and father regarding patient's access to firearms. 4.~ ~ Patient gives informed consent to start invega 3mg po qhs for AHs CIWA monitoring initiated Librium taper initiated per protocol Multivitamin, thiamine, folic acid initiated for supplementation secondary to alcohol use disorder related deficiencies Team will assist patient in applying for Medicaid benefits 5.~ ~ Patient will be provided with protected environment. 6.~ ~ Patient will be treated with individual, group, and milieu therapies. 7.~ ~ Patient will receive supportive psych-education. 8.~ ~ Discharge planning will commence immediately. 9.~ ~ Length of patients stay will be between 3-5 days. 10.~ Outpatient follow-up treatment will be strongly recommended. Mental Health Eval: 19:55 Mental health consult is initiated at 19:27. 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 [facility] Behavioral Health: The patient is not an established patient of [facility]. Referral Information: Evaluation referral is generated by the patient's therapist Darron Hawk \\T\\ [facility]. The patient was referred for evaluation because Pt presented to ED after an unscheduled walkin \\T\\ on [facility]. Pt stated +HI towards Platoon Sgt. and others. Pt reported "anger has been building through out my life". "He seems to be the focal one now". Pt stated his anger is now affecting his Marriage, work, relationships. Pt reported has no warning prior to blowing up. Will blow up over nothing, becomes physical; breaking things, broke a window in April. Pt stated more difficult to stay in control. Pt afraid he will do something serious. Pt stated emotionally ; never grieved Mother's (she of aneurism 2012). Pt reported was very close to his Mother. Pt reported in [employer] for 7+ years, deployed 2 times; [place] 04/2010-02/2011 and [place] 09/03-06/07. 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 . 20:22 Referral Information: The patient was referred for evaluation because Pt stated "in and rb out of therapy my whole life, gone through anger management a number of times". . Subjective: The patients chief complaint is Depressed, increased anxiety, Anger issues, +HI. Delusions are denied. Patient's mood is angry, anxious, depressed, Hallucinations are denied. Mental Health history: anxiety, depression, Mental Health Admissions: None. Current Outpatient Mental Health Services: Therapist / Agency: pt has initial apt 06/06/16 with [facility] Current living environment is The patient currently lives with his / her spouse, of 5 years, 2 step dgts; 16 & 17 y/o, and 3yr old son. . The patient is . Patient presents to Emergency Department with the following symptoms within the past 2 weeks: anger, anxiety, depressed mood, Homicidal ideation toward their [employer]oon Sgt. poor impulse control, relational problem. Substance abuse: Pt denies. Mental status exam: Patients appearance is appropriate, Patient's behavior is cooperative, Speech is slow. Affect is flat. Mood is angry. anxious. depressed. Hallucinations are denied. Appetite is normal. Memory is good. Energy level is normal. Content of thought is depressive. +HI Thought process is characterized by flight of ideas. Cognitive level is oriented to person, place, time and situation Patient's insight is poor. Judgement is fair. Rapport with interviewer is good. Suicidal Ideation is not present. Homicidal ideation is present without a specific plan. Disposition: Medically cleared for disposition by Sreekanth Winston DO Psychiatric Consult is performed by phone with Dr Tremaine Ramirez. [facility] Admission Criteria: The patient displays homicidal ideation. The patient displays behavior that is destructive to property. The patient requires continuous observation and/or control to protect self, others or property. Legal Status: Patient's legal status will be Emergency admission: 39. [place] Safe Act: [place] Safe Act is applicable to this patient. The patient poses a risk to self or other and the Nursing Crystallizer Operator has been notified. He/She will enter the patient's data. 20:41 DSM-V Differential Diagnosis: Unspecified Depressive Disorder (F32.9). Insurance rb Pre-Certification: Not Required. Awaiting: transfer to [facility]. Medications No Active Prescriptions or Reported Meds Allergies Coded Allergies: No Known Allergies (Unverified , 06/05/16) MYNOR CERVANTES MD Jun 06, 2016 16:50
[2016-06-06 18:00] VITALS: BP 115/64
[2016-06-06] MEDS: DIVALPROEX 500 MG TAB PO SCH (21:36)
[2016-06-07 07:02] VITALS: BP 122/60
[2016-06-07 07:39] LABS: ALBUMIN 3.6 GM/DL (3.2-5.2); ALBUMIN/GLOBULIN RATIO 1.13 (1.00-1.93); ALKALINE PHOSPHATASE 68 U/L (45-117); ALT/SGPT 36 U/L (12-78); ANION GAP 9 MEQ/L (8-16); AST/SGOT 24 U/L (15-37); BILIRUBIN,TOTAL 0.5 MG/DL (0.2-1.0); BLOOD UREA NITROGEN 13 MG/DL (7-18); CALCIUM LEVEL 9.1 MG/DL (8.5-10.1); CARBON DIOXIDE LEVEL 29 MEQ/L (21-32); CHLORIDE LEVEL 107 MEQ/L (98-107); CREATININE FOR GFR 1.04 MG/DL (0.70-1.30); GLOMERULAR FILTRATION RATE > 60.0 (>60); GLUCOSE, FASTING 78 MG/DL (70-105); POTASSIUM SERUM 4.3 MEQ/L (3.5-5.1); SODIUM LEVEL 145 MEQ/L (136-145); TOTAL PROTEIN 6.8 GM/DL (6.4-8.2)
[2016-06-07] MEDS: DIVALPROEX 250 MG TAB PO SCH (08:45)
--- NOTE | 2016-06-07 09:11 | ECGEPIP ---
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
[2016-06-07 13:48] VITALS: BP 119/67
[2016-06-07 18:00] VITALS: BP 131/68
[2016-06-07] MEDS: traZODone 50 MG TAB PO PRN (20:48)
[2016-06-07] MEDS: DIVALPROEX 500 MG TAB PO SCH (20:48)
--- NOTE | 2016-06-08 00:59 | EDDOCDS ---
Nurse's Notes [facility] Name: Remy Medina Age: 26 yrs Sex: Male : 1990 Arrival Date: 06/05/2016 Time: 12:32 Bed OBSERVATION Private MD: Munira [facility] Diagnosis: Major depressive disorder, recurrent Presentation: 06/05 12:38 Presenting complaint: Patient states: is homicidal with couple people he is interested kr3 in hurting. Mental Health Triage Level: Level 2: The patient displays active homicidal ideations. Adult Sepsis Screening: The patient does not have new or worsening altered mentation. Patient's respiratory rate is less than 22. Systolic blood pressure is greater than 100. Patient has a qSOFA score of 0- Negative Sepsis Screen. Suicide/Homicide risk assessment- The patient admits to and/or has been reported to be having homicidal ideations. The patient reports that he/she has not been admitted to an inpatient mental health facility in the last 30 days. The patient reports that he/she does not have a recent or current history of substance abuse. The patient reports that he/she has no prior history of suicide attempt and/or organized plan. The patient reports that he/she has not experienced a significant life altering event in the last 30 days. 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 Transition of care: patient was not received from another setting of care. 12:38 Method Of Arrival: Walkin/Carried/Asstd kr3 12:38 Acuity: JACEK Level 3 kr3 Triage Assessment: 12:40 General: Appears in no apparent distress, comfortable, Behavior is cooperative. Pain: kr3 Denies pain. Pt Declines HIV testing. The patient is triaged at the bedside. See Assessment in Nurses Notes section of ED record. Neurological: Level of Consciousness is awake, alert. Respiratory: Respiratory effort is even, unlabored. Derm: Skin is pink, warm & dry. Historical: - Allergies: no known allergies; - Home Meds: 1. none - PMHx: none; - PSHx: Shoulder Arthroscopy- Right; - The history from nurses notes was reviewed: and I agree with what is documented. - Social history: Smoking status: Patient uses tobacco products, current some day smoker. No barriers to communication noted, The patient speaks fluent Guinean, Speaks appropriately for age. - : The pt / caregiver states he / she is not on anticoagulants. Home medication list is obtained from the patient. - Hospitalizations: : No recent hospitalization is reported. - Exposure Risk Screening:: None identified. - Immunization history:: All immunizations up-to-date. - Family history: Not pertinent. - Social history:: the patient smokes cigarettes the patient drinks alcohol. Screenin:39 Screening information is obtained from the patient. Fall risk: No risks identified. ttb Assistance ADL's: requires no assistance with activities of daily living. Abuse/DV Screen: The patient / caregiver reports he/she is: not in a situation that causes fear, pain or injury. Nutritional screening: No deficits noted. Advance Directives: Currently, there is no health care proxy. home support is adequate. Assessment: 16:39 General: Appears in no apparent distress, well nourished, well groomed, Behavior is ttb appropriate for age, cooperative, flat, pleasant, quiet. Pain: Denies pain. Neurological: Level of Consciousness is awake, alert, Speech is normal, Facial symmetry appears normal. Cardiovascular: Heart tones S1 S2 present Chest pain is denied. Respiratory: Airway is patent Breath sounds are clear bilaterally. Denies cough, shortness of breath. GI: Denies intolerance of fluids, intolerance of food, nausea, vomiting, pain. Derm: Skin is normal. 17:30 Reassessment: Patient appears in no apparent distress at this time. pt with LEONA in ttb room. NAD noted. No needs at this time.. 19:02 General: report given to VICKY Pierce to continue care. ttb 20:00 General: Appears in no apparent distress, comfortable, Behavior is appropriate for age, rw1 cooperative. Pain: Denies pain. Neurological: Level of Consciousness is awake, alert, obeys commands, Oriented to person, place, time. Respiratory: Airway is patent Respiratory effort is even, unlabored. Derm: Skin is pink, warm & dry. normal. 21:01 Reassessment: Patient appears in no apparent distress at this time. resting quietly on rw1 stretcher, safety maintained will monitor.. 23:35 General: Appears in no apparent distress, comfortable, Behavior is cooperative, mv5 pleasant, Pt resting on stretcher, has no complaints at this time, denies pain.. Pain: Denies pain. Neurological: Level of Consciousness is awake, alert, Oriented to person, place, time, Speech is normal. Respiratory: Airway is patent Respiratory effort is even, unlabored. Derm: Skin is pink, warm & dry. Mental Health Eval: 19:55 Mental health consult is initiated at 19:27. 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 [facility] Behavioral Health: The patient is not an established patient of [facility] Behavioral Health. Referral Information: Evaluation referral is generated by the patient's therapist Darron Hawk \\T\\ [facility]. The patient was referred for evaluation because Pt presented to ED after an unscheduled walkin \\T\\ on . [facility]. Pt stated +HI towards [employer] Sgt. and others. Pt reported "anger has been building through out my life". "He seems to be the focal one now". Pt stated his anger is now affecting his Marriage, work, relationships. Pt reported has no warning prior to blowing up. Will blow up over nothing, becomes physical; breaking things, broke a window in April. Pt stated more difficult to stay in control. Pt afraid he will do something serious. Pt stated emotionally ; never grieved Mother's (she of aneurism 2012). Pt reported was very close to his Mother. Pt reported in [employer] for 7+ years, deployed 2 times; [place] 04/2010-02/2011 and [place] 09/03-06/07. 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 . 20:22 Referral Information: The patient was referred for evaluation because Pt stated "in and rb out of therapy my whole life, gone through anger management a number of times". . Subjective: The patients chief complaint is Depressed, increased anxiety, Anger issues, +HI. Delusions are denied. Patient's mood is angry, anxious, depressed, Hallucinations are denied. Mental Health history: anxiety, depression, Mental Health Admissions: None. Current Outpatient Mental Health Services: Therapist / Agency: pt has initial apt 06/06/16 with [facility] \\T\\ [facility].. Current living environment is The patient currently lives with his / her spouse, of 5 years, 2 step dgts; 16 & 17 y/o, and 3yr old son. . The patient is . Patient presents to Emergency Department with the following symptoms within the past 2 weeks: anger, anxiety, depressed mood, Homicidal ideation toward their [employer]. poor impulse control, relational problem. Substance abuse: Pt denies. Mental status exam: Patients appearance is appropriate, Patient's behavior is cooperative, Speech is slow. Affect is flat. Mood is angry. anxious. depressed. Hallucinations are denied. Appetite is normal. Memory is good. Energy level is normal. Content of thought is depressive. +HI Thought process is characterized by flight of ideas. Cognitive level is oriented to person, place, time and situation Patient's insight is poor. Judgement is fair. Rapport with interviewer is good. Suicidal Ideation is not present. Homicidal ideation is present without a specific plan. Disposition: Medically cleared for disposition by Sreekanth Winston DO Psychiatric Consult is performed by phone with Dr Tremaine Ramirez. [facility] Admission Criteria: The patient displays homicidal ideation. The patient displays behavior that is destructive to property. The patient requires continuous observation and/or control to protect self, others or property. Legal Status: Patient's legal status will be Emergency admission: . [place] Safe Act: [place] Safe Act is applicable to this patient. The patient poses a risk to self or other and the Nursing Music Agent has been notified. He/She will enter the patient's data. 20:41 DSM-V Differential Diagnosis: Unspecified Depressive Disorder (F32.9). Insurance rb Pre-Certification: Not Required. Awaiting: transfer to [facility]. Vital Signs: 12:34 BP 131 / 69; Pulse 61; Resp 18; Temp 98.9(O); Pulse Ox 99% on R/A; Weight 95.25 kg (R); ct3 Height 6 ft. 0 in. (182.88 cm) (R); Pain 0/10; 18:48 BP 157 / 66; Pulse 70; Resp 16; Temp 97.8(O); Pulse Ox 98% on R/A; nb2 12:34 Body Mass Index 28.48 (95.25 kg, 182.88 cm) ct3 Vitals: 12:34 Log In Time: June 05, 2016 at 12:31. RN notified that patient meets Red Flag ct3 criteria. ED Course: 12:33 Patient visited by Vale Mcgregor PCA. ct3 12:33 Patient moved to Waiting ct3 12:34 JAYE Lombardo is Private Physician. ct3 12:36 Patient moved to 31 ct3 12:37 Patient moved to 30 kr3 12:39 Triage Initiated kr3 12:46 Psych Safety Check: Location: Medical Room. Visual Assessment: Cooperative. jlm 12:47 Patient visited by Lori Khan, Traffic Sign Erection Supervisor. jlm 12:51 Psych Safety Check: Location: Bathroom. Visual Assessment: Cooperative. jlm 12:52 Patient visited by Lori Khan, Traffic Sign Erection Supervisor. jlm 13:01 Acetaminophen Level Sent. dwg 13:01 Basic Metabolic Profile Sent. dwg 13:01 Complete Blood Count Sent. dwg 13:01 Drug Eval Toxicology ED Only Sent. dwg 13:01 Ethyl Alcohol (ethanol) Sent. dwg 13:01 Liver Profile Sent. dwg 13:01 Salicylate Level Sent. dwg 13:01 Thyroid Stimulating Hormone Sent. dwg 13:04 Patient visited by Kelly Armendariz. nb2 13:04 Psych Safety Check: Location: Medical Room. Visual Assessment: Cooperative. nb2 13:15 Chung Jorgensen MD is Attending Physician. pc 13:15 Patient visited by Chung Jorgensen MD. pc 13:15 Psych Safety Check: Location: Medical Room. Visual Assessment:. nb2 13:16 Patient visited by Kelly Armendariz. nb2 13:31 Psych Safety Check: Location: Medical Room. Visual Assessment: Cooperative, pt given 2 nb2 kiwis and noodles in tupperware from his lunchbox in his locker by PARTHA Johns. 13:32 Patient visited by Kelly Armendariz. nb2 13:44 Patient visited by Kelly Armendariz. nb2 13:44 Psych Safety Check: Location: Medical Room. Visual Assessment: Cooperative. nb2 14:00 Patient visited by Kelly Armendariz. nb2 14:00 Psych Safety Check: Location: Medical Room. Visual Assessment: Cooperative. nb2 14:15 Patient visited by Kelly Armendariz. nb2 14:15 Psych Safety Check: Location: Medical Room. Visual Assessment: Cooperative. nb2 14:30 Patient visited by Kelly Armendariz. nb2 14:30 Psych Safety Check: Location: Medical Room. Visual Assessment: Cooperative. nb2 14:45 Psych Safety Check: Location: Medical Room. Visual Assessment: Cooperative. nb2 14:47 Patient visited by Kelly Armendariz. nb2 15:00 Patient visited by Kelly Armendariz. nb2 15:00 Psych Safety Check: Location: Medical Room. Visual Assessment: Cooperative. nb2 15:15 Patient visited by Kelly Armendariz. nb2 15:15 Psych Safety Check: Location: Medical Room. Visual Assessment: Cooperative. nb2 15:29 Patient visited by Kelly Armendariz. nb2 15:29 Psych Safety Check: Location: Medical Room. Visual Assessment: Cooperative. nb2 15:45 Patient visited by Kelly Armendariz. nb2 15:45 Psych Safety Check: Location: Medical Room. Visual Assessment: Cooperative. nb2 16:00 Psych Safety Check: Location: Medical Room. Visual Assessment: Cooperative. jlm 16:01 Patient visited by Lori Khan Unit Clerk. jlm 16:17 Patient visited by Lori Khan Unit Clerk. jlm 16:17 Psych Safety Check: Location: Medical Room. Visual Assessment: Cooperative. jlm 16:32 Psych Safety Check: Location: Medical Room. Visual Assessment: Cooperative. jlm 16:33 Patient visited by Lori Khan Unit Clerk. jlm 16:39 The patient / caregiver is instructed regarding the plan of care and ED course. ttb Accompanied by LEONA, Patient has correct armband on for positive identification. Placed in gown. Placed in psych safe attire. Security observing. 16:39 No IV's were initiated during this patient's visit. Labs drawn. (by ED staff). Urine ttb collected. 16:42 Patient visited by Liberty Hutchinson RN. ttb 17:00 Patient visited by Lori Khan Unit Clerk. jlm 17:00 Psych Safety Check: Location: Medical Room. Visual Assessment: Cooperative. jlm 17:09 [facility] [place] Payment Agreement was scanned into [employer] and attached to record. ks16 17:16 Patient visited by Lori Khan Unit Clerk. jlm 17:16 Psych Safety Check: Location: Medical Room. Visual Assessment: Cooperative. jlm 17:29 Patient visited by Lori Khan Unit Clerk. jlm 17:30 Accompanied by LEONA, Security observing. ttb 17:44 Patient visited by Lori Khan Unit Clerk. jlm 17:44 Psych Safety Check: Location: Medical Room. Visual Assessment: Cooperative. jlm 17:55 Patient visited by Lori Khan Unit Clerk. jlm 17:55 Diet: Patient given regular meal. jlm 18:06 Patient visited by Lori Khan Traffic Sign Erection Supervisor. jlm 18:06 Psych Safety Check: Location: Medical Room. Visual Assessment: Cooperative. jlm 18:07 Patient visited by Lori Khan Unit Clerk. jlm 18:11 Psych Safety Check: Location: Bathroom. Visual Assessment: Cooperative. jlm 18:12 Patient visited by Lori Khan Traffic Sign Erection Supervisor. jlm 18:18 Patient visited by Lori Khan Unit Clerk. jlm 18:18 Psych Safety Check: Location: Medical Room. Visual Assessment: Cooperative. jlm 18:30 Psych Safety Check: Location: Psych Room. Visual Assessment: Cooperative. tmm1 18:32 Patient visited by Lori Khan Unit Clerk. jlm 18:34 Patient moved to [facility] ttb 18:45 Psych Safety Check: Location: Psych Room. Visual Assessment: Cooperative. tmm1 18:48 Patient visited by Kelly Armendariz. nb2 18:56 Patient visited by Liberty Hutchinson RN. ttb 18:58 Attending Physician role handed off by Chung Jorgensen MD cs11 18:58 Sreekanth Winston DO is Attending Physician. cs11 18:58 Patient moved to [facility] cs11 18:59 Isaac Cullen LPN is Primary Nurse. rw1 19:02 Patient visited by Sharon Oliveira PCA. tmm1 19:02 Psych Safety Check: Location: Psych Room. Visual Assessment: Cooperative. tmm1 19:15 Psych Safety Check: Location: Psych Room. Visual Assessment:. tmm1 19:32 Psych Safety Check: Location: Psych Room. Visual Assessment: Cooperative. tmm1 19:46 Psych Safety Check: Location: Psych Room. Visual Assessment: Cooperative. tmm1 20:30 Psych Safety Check: Location: Psych Room. Visual Assessment: Cooperative. tmm1 20:40 Patient visited by Isaac Cullen LPN. rw1 20:45 Psych Safety Check: Location: Psych Room. Visual Assessment: Cooperative. tmm1 21:00 Psych Safety Check: Location: Psych Room. Visual Assessment: Cooperative. tmm1 21:01 Patient visited by Isaac Cullen LPN. rw1 21:10 [facility] Legal paperwork was scanned into [employer] and attached to record. rb 21:15 Psych Safety Check: Location: Psych Room. Visual Assessment: Cooperative. tmm1 21:16 Patient visited by Isaac Cullen LPN. rw1 21:18 Tremaine Ramirez is Hospitalizing Provider. cs11 21:21 role handed off by Lupillo Morales PSA kb5 21:30 Psych Safety Check: Location: Psych Room. Visual Assessment: Cooperative. tmm1 21:45 Psych Safety Check: Location: Psych Room. Visual Assessment: Cooperative. tmm1 22:00 Psych Safety Check: Location: Psych Room. Visual Assessment: Cooperative. tmm1 22:15 Psych Safety Check: Location: Psych Room. Visual Assessment: Cooperative. tmm1 22:30 Psych Safety Check: Location: Psych Room. Visual Assessment: Cooperative. tmm1 22:45 Psych Safety Check: Location: Psych Room. Visual Assessment: Cooperative. tmm1 23:00 Psych Safety Check: Location: Psych Room. Visual Assessment: Cooperative. tr 23:16 Patient visited by Param Loera. tr 23:49 Patient visited by Param Loera. tr Attachments: 21:10 [facility] Legal paperwork rb Order Results: Lab Order: Acetaminophen Level; SPEC'M 06/05/16 12:58 Test: ACETAMINOPHEN LEVEL; Value: < 2.0; Range: 10.0-30.0; Abnormal: Below low normal; Units: UG/ML; Status: F Lab Order: Basic Metabolic Profile; SPEC'M 06/05/16 12:58 Test: GLUCOSE, FASTING; Value: 61; Range: 70-105; Abnormal: Below low normal; Units: MG/DL; Status: F Test: BLOOD UREA NITROGEN; Value: 13; Range: 7-18; Units: MG/DL; Status: F Test: CREATININE FOR GFR; Value: 1.10; Range: 0.70-1.30; Units: MG/DL; Status: F Test: GLOMERULAR FILTRATION RATE; Value: > 60.0; Range: >60; Status: F Test: SODIUM LEVEL; Value: 143; Range: 136-145; Units: MEQ/L; Status: F Test: POTASSIUM SERUM; Value: 4.4; Range: 3.5-5.1; Units: MEQ/L; Status: F Test: CHLORIDE LEVEL; Value: 106; Range: 98-107; Units: MEQ/L; Status: F Test: CARBON DIOXIDE LEVEL; Value: 28; Range: 21-32; Units: MEQ/L; Status: F Test: ANION GAP; Value: 9; Range: 8-16; Units: MEQ/L; Status: F Test: CALCIUM LEVEL; Value: 8.8; Range: 8.5-10.1; Units: MG/DL; Status: F Test Note: ; Units are mL/min/1.73 m2 Chronic Kidney Disease Staging per NKF: Stage I & II GFR >=60 Normal to Mildly Decreased Stage III GFR 30-59 Moderately Decreased Stage IV GFR 15-29 Severely Decreased Stage V GFR <15 Very Little GFR Left ESRD GFR <15 on [employer]ARD [employer] Lab Order: Complete Blood Count; SPEC'M 06/05/16 12:58 Test: WHITE BLOOD COUNT; Value: 5.4; Range: 4.0-10.0; Units: K/mm3; Status: F Test: RED BLOOD COUNT; Value: 5.04; Range: 4.30-6.10; Units: M/mm3; Status: F Test: HEMOGLOBIN; Value: 14.9; Range: 14.0-18.0; Units: g/dl; Status: F Test: HEMATOCRIT; Value: 45.0; Range: 42.0-52.0; Units: %; Status: F Test: MEAN CORPUSCULAR VOLUME; Value: 89.2; Range: 80.0-96.0; Units: fl; Status: F Test: MEAN CORPUSCULAR HEMOGLOBIN; Value: 29.6; Range: 27.0-33.0; Units: pg; Status: F Test: MEAN CORPUSCULAR HGB CONC; Value: 33.2; Range: 32.0-36.5; Units: g/dl; Status: F Test: RED CELL DISTRIBUTION WIDTH; Value: 12.3; Range: 11.5-14.5; Units: %; Status: F Test: PLATELET COUNT, AUTOMATED; Value: 206; Range: 150-450; Units: k/mm3; Status: F Lab Order: Drug Eval Toxicology ED Only; SPEC'M 06/05/16 12:58 Test: AMPHETAMINES LEVEL URINE; Value: NEGATIVE; Range: NEGATIVE; Status: F Test: BARBITURATES URINE; Value: NEGATIVE; Range: NEGATIVE; Status: F Test: BENZODIAZEPINES URINE; Value: NEGATIVE; Range: NEGATIVE; Status: F Test: CANNABINOIDS URINE; Value: NEGATIVE; Range: NEGATIVE; Status: F Test: COCAINE METABOLITE URINE; Value: NEGATIVE; Range: NEGATIVE; Status: F Test: METHADONE URINE; Value: NEGATIVE; Range: NEGATIVE; Status: F Test: OPIATES URINE; Value: NEGATIVE; Range: NEGATIVE; Status: F Test: TRICYCLIC ANTIDEPRESS URINE; Value: NEGATIVE; Range: NEGATIVE; Status: F Test Note: ; ALL PRESUMPTIVE POSITIVE FINDINGS ARE UNCONFIRMED NORMAL VALUES THRESHOLD IN NG/ML AMPHETAMINES 1000 METHAMPHETAMINES 1000 BARBITURATES 300 BENZODIAZEPINES 300 CANNABINOIDS (THC) 50 COCAINE METABOLITE 300 METHADONE 300 OPIATES 300 PHENCYCLIDINE 25 TRICYCLIC ANTIDEPRESSANTS 1000 RESULTS ARE FOR MEDICAL PURPOSES ONLY. ALL URINE SPECIMENS WILL BE SAVED FOR 3 DAYS. IF CONFIRMATION OF A PRESUMPTIVE POSTIVE SCREEN RESULT IS DESIRED, CALL CHEMISTRY ([phone]) AND REQUEST URINE TO BE SENT TO REFERENCE LAB. FOR A LIST OF CLOSELY RELATED COMPOUNDS PLEASE CALL THE LAB. Lab Order: Ethyl Alcohol (ethanol); SPEC'M 06/05/16 12:58 Test: ETHYL ALCOHOL (ETHANOL); Value: < 0.003; Range: 0.000-0.010; Units: %; Status: F Lab Order: Liver Profile; SPEC'M 06/05/16 12:58 Test: AST/SGOT; Value: 41; Range: 15-37; Abnormal: Above high normal; Units: U/L; Status: F Test: ALT/SGPT; Value: 43; Range: 12-78; Units: U/L; Status: F Test: ALKALINE PHOSPHATASE; Value: 85; Range: 45-117; Units: U/L; Status: F Test: BILIRUBIN,TOTAL; Value: 0.5; Range: 0.2-1.0; Units: MG/DL; Status: F Test: BILIRUBIN,DIRECT; Value: 0.1; Range: 0.0-0.2; Units: MG/DL; Status: F Test: TOTAL PROTEIN; Value: 7.7; Range: 6.4-8.2; Units: GM/DL; Status: F Test: ALBUMIN; Value: 4.1; Range: 3.2-5.2; Units: GM/DL; Status: F Test: ALBUMIN/GLOBULIN RATIO; Value: 1.14; Range: 1.00-1.93; Status: F Lab Order: Salicylate Level; SPEC'M 06/05/16 12:58 Test: SALICYLATE LEVEL; Value: < 1.7; Range: 5.0-30.0; Abnormal: Below low normal; Units: MG/DL; Status: F Lab Order: Thyroid Stimulating Hormone; SPEC'M 06/05/16 12:58 Test: THYROID STIMULATING HORMONE; Value: 2.200; Range: 0.358-3.740; Units: uIU/ML; Status: F Outcome: 21:18 Decision to Hospitalize by Provider. cs11 23:57 Patient left the ED. ml3 Signatures: Chung Jorgensen MD MD pc Greene, Daniel, RN RN dwg Elke Wetzel, PSA PSA rb Param Loera Mary-Elizabeth, Traffic Sign Erection Supervisor Unit ml3 Lupe Menjivar,RN RN kr3 Isaac Cullen LPN TRANSPORTATION ASSOCIATE rw1 Giuseppe Toribio, MAINTENANCE AND OPERATIONS SUPERVISOR MAINTENANCE AND OPERATIONS SUPERVISOR kb5 Vale Mcgregor, MAINTENANCE AND OPERATIONS SUPERVISOR MAINTENANCE AND OPERATIONS SUPERVISOR ct3 Sreekanth Winston, DO DO cs11 Liberty Hutchinson, RN RN ttb Paco Oliveirasa, MAINTENANCE AND OPERATIONS SUPERVISOR MAINTENANCE AND OPERATIONS SUPERVISOR tmm1 Lori Khan, Traffic Sign Erection Supervisor Unit jl Lou Burgess, Reg Reg ks16 Kelly Armendariz nb2 Shima Chakraborty,RN RN mv5 Corrections: (The following items were deleted from the chart) 20:38 19:55 Referral Information: Evaluation referral is generated by the patient's therapist aaron Hawk [facility] The patient was referred for evaluation because Pt presented to ED after an unscheduled walkin \\T\\ on [place]. Pt stated +HI towards [employer]. and others. Pt reported "anger has been building through out my life". "He seems to be the focal one now". Pt stated his anger is now affecting his Marriage, work, relationships. Pt reported has no warning prior to blowing up . rb Chart Complete MTDD
--- NOTE | 2016-06-08 00:59 | EDDOCDS ---
Physician Documentation [facility] Name: Remy Medina Age: 26 yrs Sex: Male : 1990 Arrival Date: 06/05/2016 Time: 12:32 Bed OBSERVATION Private MD: Munira [facility] Disposition: 06/05/16 21:18 Hospitalization ordered by Tremaine Ramirez for Inpatient Admission. Preliminary diagnosis is Major depressive disorder, recurrent. - Bed requested for Admit. - Status is Inpatient Admission. ml3 - Condition is Stable. - Problem is an ongoing problem. - Symptoms are unchanged. HPI: 06/05 13:20 This 26 yrs old Male presents to ER via Walkin/Carried/Asstd with complaints pc of Psych Problem. 13:20 The history is obtained from the patient, transfer records. The patient presents to the emergency department with homicidal ideation. At their worst, the symptoms were moderate. In the emergency department, the symptoms are unchanged. 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 He was seen by [facility] and sent for evaluation. He denies feeling depressed but is frustrated. The patient has not experienced similar symptoms in the past. The patient has not recently seen a physician. Historical: - Allergies: no known allergies; - Home Meds: 1. none - PMHx: none; - PSHx: Shoulder Arthroscopy- Right; - The history from nurses notes was reviewed: and I agree with what is documented. - Social history: Smoking status: Patient uses tobacco products, current some day smoker. No barriers to communication noted, The patient speaks fluent Wolof, Speaks appropriately for age. - : The pt / caregiver states he / she is not on anticoagulants. Home medication list is obtained from the patient. - Hospitalizations: : No recent hospitalization is reported. - Exposure Risk Screening:: None identified. - Immunization history:: All immunizations up-to-date. - Family history: Not pertinent. - Social history:: the patient smokes cigarettes the patient drinks alcohol. ROS: 13:20 All systems are negative except as listed. The psychiatric and neurological components pc are also addressed in the HPI. Exam: 13:20 General Appearance: alert, no acute distress. pc 13:20 ENT: ear, nose and throat normal, pharynx normal. 13:20 Eyes: pupils equal, round and reactive to light, extraocular motions intact. 13:20 Neck: The exam reveals no acute abnormalities. ROM is normal and painless. No nuchal rigidity is noted.. 13:20 Respiratory: breathing is even and unlabored, breath sounds are normal. 13:20 Cardiovascular: regular pulse rate, regular heart rhythm, normal heart sounds, equal and full pulses bilaterally. 13:20 Abdomen: soft, non-tender, no organomegaly, normal bowel sounds. 13:20 Skin: skin color is normal, warm, dry. 13:20 Extremities: The extremities have a grossly normal appearance, are non-tender, without acute ROM abnormalities. 13:20 Neuro: alert, oriented to person, place and time, cranial nerves normal as tested, no motor deficits, no sensory deficits. 13:20 Psych: affect is appropriate, mood is angry. Vital Signs: 12:34 BP 131 / 69; Pulse 61; Resp 18; Temp 98.9(O); Pulse Ox 99% on R/A; Weight 95.25 kg / ct3 209.99 lbs (R); Height 6 ft. 0 in. (182.88 cm) (R); Pain 0/10; 18:48 BP 157 / 66; Pulse 70; Resp 16; Temp 97.8(O); Pulse Ox 98% on R/A; nb2 12:34 Body Mass Index 28.48 (95.25 kg, 182.88 cm) ct3 MDM: 12:48 Consult PFS/PSA/Medicare Specialist: Patient's case requires discussion with on-call [facility] Psychiatrist ordered. 12:48 PSA/PFS to call Nursing Territory Sales Manager Medical, to enter patient data on [place] if patient dwg involuntarily admitted or transferred for SI or HI ordered. 12:48 Confirm accurate psychiatric medication list and times of last dosage ordered. dwg 12:48 Detain Pt Until Medically/PFS Cleared ordered. dwg 12:48 REGULAR DIET PLASTIC LUQUE+DIET ordered. EDMS 12:49 Acetaminophen Level Ordered. EDMS 12:49 Basic Metabolic Profile Ordered. EDMS 12:49 Complete Blood Count Ordered. EDMS 12:50 Drug Eval Toxicology ED Only Ordered. EDMS 12:50 Ethyl Alcohol (ethanol) Ordered. EDMS 12:50 Liver Profile Ordered. EDMS 12:50 Salicylate Level Ordered. EDMS 12:50 Thyroid Stimulating Hormone Ordered. EDMS 13:20 Differential diagnosis: homicidal ideation, adjustment disorder. Plan: labs, PFS eval. pc 14:22 Acetaminophen Level Reviewed. pc 14:22 Basic Metabolic Profile Reviewed. pc 14:22 Liver Profile Reviewed. pc 14:22 Salicylate Level Reviewed. pc 14:22 Complete Blood Count Reviewed. pc 14:22 Drug Eval Toxicology ED Only Reviewed. pc 14:22 Ethyl Alcohol (ethanol) Reviewed. pc 14:22 Thyroid Stimulating Hormone Reviewed. pc 16:36 Financial registration complete. [email or web address] 17:09 [facility] Payment Agreement was scanned into [employer] and attached to record. [email or web address] 17:18 REGULAR DIET PLASTIC LUQUE+DIET ordered. EDMS 19:54 Consult PFS/PSA/Medicare Specialist: Patient's case requires discussion with on-call rb Psychiatrist complete. 19:54 PSA/PFS to call Nursing Territory Sales Manager Medical, to enter [place] data [place] if patient rb involuntarily admitted or transferred for SI or HI complete. 20:39 Admit to [facility]: ordered. EDMS 21:10 [facility] Legal paperwork was scanned into [employer] and attached to record. rb 21:19 BED REQUEST+ADM ordered. EDMS Signatures: Dispatcher [employer] EDMS Chung Jorgensen MD MD pc Greene, Daniel, RN RN [facility] Elke Wetzel PSA PSA rb Robbin Logan, Research Group Director Unit ml3 Lupe Menjivar,RN RN kr3 Sreekanth Winston, DO cs11 Lou Burgess, Reg Reg [email or web address] The chart was reviewed and I authenticate all verbal orders and agree with the evaluation and treatment provided.Corrections: (The following items were deleted from the chart) 13:16 12:48 Consult PFS/PSA/Medicare Specialist [facility] Attachments: 17:09 [facility] Payment Agreement [email or web address] Chart Complete MTDD
--- NOTE | 2016-06-08 00:59 | EDDOCDS ---
Physician Documentation [facility] Name: Remy Medina Age: 26 yrs Sex: Male : 1990 Arrival Date: 06/05/2016 Time: 12:32 Bed OBSERVATION Private MD: Munira [facility] Disposition: 06/05/16 21:18 Hospitalization ordered by Tremaine Ramirez for Inpatient Admission. Preliminary diagnosis is Major depressive disorder, recurrent. - Bed requested for Admit. - Status is Inpatient Admission. ml3 - Condition is Stable. - Problem is an ongoing problem. - Symptoms are unchanged. HPI: 06/05 13:20 This 26 yrs old Male presents to ER via Walkin/Carried/Asstd with complaints pc of Psych Problem. 13:20 The history is obtained from the patient, transfer records. The patient presents to the emergency department with homicidal ideation. At their worst, the symptoms were moderate. In the emergency department, the symptoms are unchanged. 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 He was seen by [facility] and sent for evaluation. He denies feeling depressed but is frustrated. The patient has not experienced similar symptoms in the past. The patient has not recently seen a physician. Historical: - Allergies: no known allergies; - Home Meds: 1. none - PMHx: none; - PSHx: Shoulder Arthroscopy- Right; - The history from nurses notes was reviewed: and I agree with what is documented. - Social history: Smoking status: Patient uses tobacco products, current some day smoker. No barriers to communication noted, The patient speaks fluent German, Speaks appropriately for age. - : The pt / caregiver states he / she is not on anticoagulants. Home medication list is obtained from the patient. - Hospitalizations: : No recent hospitalization is reported. - Exposure Risk Screening:: None identified. - Immunization history:: All immunizations up-to-date. - Family history: Not pertinent. - Social history:: the patient smokes cigarettes the patient drinks alcohol. ROS: 13:20 All systems are negative except as listed. The psychiatric and neurological components pc are also addressed in the HPI. Exam: 13:20 General Appearance: alert, no acute distress. pc 13:20 ENT: ear, nose and throat normal, pharynx normal. 13:20 Eyes: pupils equal, round and reactive to light, extraocular motions intact. 13:20 Neck: The exam reveals no acute abnormalities. ROM is normal and painless. No nuchal rigidity is noted.. 13:20 Respiratory: breathing is even and unlabored, breath sounds are normal. 13:20 Cardiovascular: regular pulse rate, regular heart rhythm, normal heart sounds, equal and full pulses bilaterally. 13:20 Abdomen: soft, non-tender, no organomegaly, normal bowel sounds. 13:20 Skin: skin color is normal, warm, dry. 13:20 Extremities: The extremities have a grossly normal appearance, are non-tender, without acute ROM abnormalities. 13:20 Neuro: alert, oriented to person, place and time, cranial nerves normal as tested, no motor deficits, no sensory deficits. 13:20 Psych: affect is appropriate, mood is angry. Vital Signs: 12:34 BP 131 / 69; Pulse 61; Resp 18; Temp 98.9(O); Pulse Ox 99% on R/A; Weight 95.25 kg / ct3 209.99 lbs (R); Height 6 ft. 0 in. (182.88 cm) (R); Pain 0/10; 18:48 BP 157 / 66; Pulse 70; Resp 16; Temp 97.8(O); Pulse Ox 98% on R/A; nb2 12:34 Body Mass Index 28.48 (95.25 kg, 182.88 cm) ct3 MDM: 12:48 Consult PFS/PSA/Child Watch Attendant: Patient's case requires discussion with on-call [facility] Psychiatrist ordered. 12:48 PSA/PFS to call Nursing Violent Crimes Detective, to enter [place] data [place] if patient dwg involuntarily admitted or transferred for SI or HI ordered. 12:48 Confirm accurate psychiatric medication list and times of last dosage ordered. dwg 12:48 Detain Pt Until Medically/PFS Cleared ordered. dwg 12:48 REGULAR DIET PLASTIC LUQUE+DIET ordered. EDMS 12:49 Acetaminophen Level Ordered. EDMS 12:49 Basic Metabolic Profile Ordered. EDMS 12:49 Complete Blood Count Ordered. EDMS 12:50 Drug Eval Toxicology ED Only Ordered. EDMS 12:50 Ethyl Alcohol (ethanol) Ordered. EDMS 12:50 Liver Profile Ordered. EDMS 12:50 Salicylate Level Ordered. EDMS 12:50 Thyroid Stimulating Hormone Ordered. EDMS 13:20 Differential diagnosis: homicidal ideation, adjustment disorder. Plan: labs, PFS eval. pc 14:22 Acetaminophen Level Reviewed. pc 14:22 Basic Metabolic Profile Reviewed. pc 14:22 Liver Profile Reviewed. pc 14:22 Salicylate Level Reviewed. pc 14:22 Complete Blood Count Reviewed. pc 14:22 Drug Eval Toxicology ED Only Reviewed. pc 14:22 Ethyl Alcohol (ethanol) Reviewed. pc 14:22 Thyroid Stimulating Hormone Reviewed. pc 16:36 Financial registration complete. [email or web address] 17:09 [facility] Payment Agreement was scanned into [employer] and attached to record. [email or web address] 17:18 REGULAR DIET PLASTIC LUQUE+DIET ordered. EDMS 19:54 Consult PFS/PSA/Child Watch Attendant: Patient's case requires discussion with on-call rb Psychiatrist complete. 19:54 PSA/PFS to call Nursing Violent Crimes Detective, to enter [place] data [place] if patient rb involuntarily admitted or transferred for SI or HI complete. 20:39 Admit to [facility]: ordered. EDMS 21:10 [facility] Legal paperwork was scanned into [email or web address] and attached to record. rb 21:19 BED REQUEST+ADM ordered. EDMS Signatures: Dispatcher [employer] EDMS Chung Jorgensen MD MD pc Greene, Daniel, RN RN [facility] Elke Wetzel PSA PSA rb Robbin Logan, Plant And Maintenance Technician Unit ml3 Lupe Menjivar,RN RN kr3 Sreekanth Winston, DO cs11 Lou Burgess, Reg Reg [email or web address] The chart was reviewed and I authenticate all verbal orders and agree with the evaluation and treatment provided.Corrections: (The following items were deleted from the chart) 13:16 12:48 Consult PFS/PSA/Child Watch Attendant [facility]. [facility] Attachments: 17:09 [facility] Payment Agreement [email or web address] Chart Complete MTDD
--- NOTE | 2016-06-08 03:05 | IPNPDOC ---
[facility] Progress Note Progress Note DATE OF SERVICE: 06/07/16 Subjective: Patient reports improved mood this morning. He understands he is in a controlled environment, but reports no episodes of anger outbursts. 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 Patient is aware and reports hoping he will be able to be given a second chance as the is his career choice. Patient is medication compliant. He reports no medication side effects since initiating Depakote. He reports improved sleep. Appetite is within normal limits. Patient reports no BILLINGS, CP, Abd pain, or N/V/C/D. Objective: VITAL SIGNS: See below. NEW TEST RESULTS: None CURRENT MEDICATIONS: See below. MENTAL STATUS EXAMINATION: Patient is a 26-year-old male who appears stated age, dressed in hospital attire, anxious but cooperative Speech: Is regular rate and rhythm, spontaneous Thought processes: Linear and goal-directed Thought content: Aware he's in a controlled environment but happy he has not had any anger outbursts Orientation: Alert and oriented to time, place and person and situation Recent and remote memory: Intact. Immediate short-term and long-term memory is: intact. Attention span and concentration: fair. Language: Normal. Fund of knowledge: good. Mood: Euthymic Affect: Mildly anxious PROBLEM LIST: 1. Homicidal ideations. 2. Depression. 3. Anxiety. 4. Impulsive anger ASSESSMENT: -Bipolar 2 d/o, MRE depressed w/o PFs -Rule out personality disorder unspecified, cluster B traits Plan: ----- 1.~ ~ Patient was admitted on a 9.30 legal status, 2.~ ~ With patients permission, family contacted and database expanded. 3.~ ~ Continue Depakote 250mg po qam and 500mg po qhs for mood stabilization. 4.~ ~ Patient will be provided with protected environment. 5.~ ~ Patient will be treated with individual, group, and milieu therapies. 6.~ ~ Patient will receive supportive psych-education. 7.~ ~ Outpatient follow-up treatment will be strongly recommended. Estimated length of stay between 5-7 days TIME SPENT: [30] minutes. Vital Signs Vital Signs Date Time Temp Pulse Resp B/P Pulse Ox O2 Delivery O2 Flow Rate FiO2 2/16/17 18:00 98.2 77 16 131/68 Laboratory Data 24H Labs Laboratory Tests 2 06/07/16 06:21: Blood Urea Nitrogen 13, Creatinine 1.04, Sodium Level 145, Potassium Level 4.3, Chloride Level 107, Carbon Dioxide Level 29, Calcium Level 9.1, Aspartate Amino Transf (AST/SGOT) 24, Alanine Aminotransferase (ALT/SGPT) 36, Alkaline Phosphatase 68, Total Bilirubin 0.5, Total Protein 6.8, Albumin 3.6, Albumin/ Globulin Ratio 1.13, Anion Gap 9, Glomerular Filtration Rate > 60.0 CBC/BMP Laboratory Tests 06/07/16 06:21 Calcium Level 9.1, Aspartate Amino Transf (AST/SGOT) 24, Alanine Aminotransferase (ALT/SGPT) 36, Alkaline Phosphatase 68, Total Bilirubin 0.5, Total Protein 6.8, Albumin 3.6 Current Medications Current Medications Acetaminophen (Tylenol Tab) 650 mg Q6HP PRN PO HEADACHE or DISCOMFORT; Start at 02:45; Stop 07/06/16 at 02:44 Al Hydrox/Mg Hydrox/Simethicone (Mylanta) 30 ml Q4HP PRN PO HEARTBURN/ INDIGESTION; Start 06/06/16 at 02:45; Stop 07/06/16 at 02:44 Divalproex Sodium (Depakote) 250 mg QAM PO Last administered on 06/07/16 08:45 ; Start 06/07/16 at 09:00; Stop 07/07/16 at 08:59 Divalproex Sodium (Depakote) 500 mg QHS PO Last administered on 06/07/16 20:48 ; Start 06/06/16 at 21:00; Stop 07/06/16 at 20:59 Home Med (Med Rec Complete!) ASDIRECTED XX ; Start 06/05/16 at 21:45; Stop at 23:53; Status DC Lorazepam (Ativan) 1 mg Q4HP PRN PO ANXIETY; Start 06/06/16 at 02:45; Stop at 02:44 Magnesium Hydroxide (Milk Of Magnesia) 30 ml DAILYPRN PRN PO CONSTIPATION; Start 06/06/16 at 02:45; Stop 07/06/16 at 02:44 Trazodone HCl (Desyrel) 50 mg QHSP PRN PO INSOMNIA Last administered on t 20:48; Start 06/06/16 at 02:45; Stop 07/06/16 at 02:44 Allergies Coded Allergies: No Known Allergies (Unverified , 06/05/16) MYNOR CERVANTES MD Jun 08, 2016 03:05
--- NOTE | 2016-06-08 03:06 | IPNPDOC ---
[facility] Progress Note Progress Note DATE OF SERVICE: 06/08/16 Subjective: Patient reports no irritability, agitation, or anger outbursts since admission. Patient is med compliant and denies med s/e's. Patient is attending groups, visible and social in the milieu. Patient denies SI/HI and AH/ VH. Objective: Meds - See below. New Labs - See below. Vitals - See below. MSE: 26yo male, looks stated age, good hygeine, in home clothes, in NAD behavior - calm and cooperative eye contact - wnl speech - RRR, spontaneous mood - ok affect - euthymic TP - linear TC - happy to report benefit from groups perception - no perceptual issues reported or observed orientation - A&Ox4 insight - fair judgement - fair impulse control - poor to fair Assessment - Bipolar 2 d/o, MRE manic w/o PFs Plan - Continue current psychotropic regimen as written. TIME SPENT - 30 minutes Vital Signs Vital Signs Date Time Temp Pulse Resp B/P Pulse Ox O2 Delivery O2 Flow Rate FiO2 06/07/16 18:00 98.2 77 16 131/68 Laboratory Data 24H Labs Laboratory Tests 2 06/07/16 06:21: Blood Urea Nitrogen 13, Creatinine 1.04, Sodium Level 145, Potassium Level 4.3, Chloride Level 107, Carbon Dioxide Level 29, Calcium Level 9.1, Aspartate Amino Transf (AST/SGOT) 24, Alanine Aminotransferase (ALT/SGPT) 36, Alkaline Phosphatase 68, Total Bilirubin 0.5, Total Protein 6.8, Albumin 3.6, Albumin/ Globulin Ratio 1.13, Anion Gap 9, Glomerular Filtration Rate > 60.0 CBC/BMP Laboratory Tests 06/07/16 06:21 Calcium Level 9.1, Aspartate Amino Transf (AST/SGOT) 24, Alanine Aminotransferase (ALT/SGPT) 36, Alkaline Phosphatase 68, Total Bilirubin 0.5, Total Protein 6.8, Albumin 3.6 Current Medications Current Medications Acetaminophen (Tylenol Tab) 650 mg Q6HP PRN PO HEADACHE or DISCOMFORT; Start at 02:45; Stop 07/06/16 at 02:44 Al Hydrox/Mg Hydrox/Simethicone (Mylanta) 30 ml Q4HP PRN PO HEARTBURN/ INDIGESTION; Start 06/06/16 at 02:45; Stop 07/06/16 at 02:44 Divalproex Sodium (Depakote) 250 mg QAM PO Last administered on 06/07/16 08:45 ; Start 06/07/16 at 09:00; Stop 07/07/16 at 08:59 Divalproex Sodium (Depakote) 500 mg QHS PO Last administered on 06/07/16 20:48 ; Start 06/06/16 at 21:00; Stop 07/06/16 at 20:59 Home Med (Med Rec Complete!) ASDIRECTED XX ; Start 06/05/16 at 21:45; Stop at 23:53; Status DC Lorazepam (Ativan) 1 mg Q4HP PRN PO ANXIETY; Start 06/06/16 at 02:45; Stop at 02:44 Magnesium Hydroxide (Milk Of Magnesia) 30 ml DAILYPRN PRN PO CONSTIPATION; Start 06/06/16 at 02:45; Stop 07/06/16 at 02:44 Trazodone HCl (Desyrel) 50 mg QHSP PRN PO INSOMNIA Last administered on 20:48; Start 06/06/16 at 02:45; Stop 07/06/16 at 02:44 Allergies Coded Allergies: No Known Allergies (Unverified , 06/05/16) MYNOR CERVANTES MD Jun 08, 2016 03:06
[2016-06-08 06:18] VITALS: BP 101/53
[2016-06-08] MEDS: DIVALPROEX 250 MG TAB PO SCH (08:38)
[2016-06-08 18:00] VITALS: BP 122/63
[2016-06-08] MEDS: DIVALPROEX 500 MG TAB PO SCH (21:04)
[2016-06-08] MEDS: traZODone 50 MG TAB PO PRN (21:04)
[2016-06-09 06:33] VITALS: BP 118/56
[2016-06-09] MEDS: DIVALPROEX 250 MG TAB PO SCH (08:30)
[2016-06-09 18:00] VITALS: BP 123/59
[2016-06-09] MEDS: DIVALPROEX 500 MG TAB PO SCH (20:39)
[2016-06-09] MEDS: traZODone 50 MG TAB PO PRN (20:40)
[2016-06-10 06:14] VITALS: BP 95/50
[2016-06-10] MEDS: DIVALPROEX 250 MG TAB PO SCH (08:19)
[2016-06-10] MEDS ORDERED: traZODone 25MG PER 1/2 TABLET PO PRN (11:00)
[2016-06-10 18:00] VITALS: BP 148/69
[2016-06-10] MEDS: DIVALPROEX 500 MG TAB PO SCH (20:52)
[2016-06-11 06:32] VITALS: BP 103/52
[2016-06-11] MEDS: DIVALPROEX 250 MG TAB PO SCH (08:25)
--- NOTE | 2016-06-11 09:39 | IPN ---
DATE: 06/09/2016 Patient was admitted with depression, homicidal ideation, and anger outbursts. MEDICATIONS: - Depakote 250 mg every morning and 500 mg by mouth nightly - trazodone 50 mg by mouth nightly as needed for insomnia SUBJECTIVE: "I think I'm feeling a little better, but I don't know how my anger is going to go when I am discharged and this is worrisome." OBJECTIVE: Patient is improving slowly. Patient denies side effects from the medication. He believes the medication helps him to control his anger but he is not sure since he believes that the unit is a place where he is protected from the external stimuli of normal everyday life. He hopes that the medication will work and will help control his anger outbursts. There is no evidence of psychotic symptoms. Patient is interacting well with other patients and the staff. Patient did not have any anger outbursts or behavioral problems since he has been admitted to our unit. MENTAL STATUS EXAMINATION: Patient is dressed in [facility]. Patient is cooperative during the exam, fair eye contact. His speech is normal in rate, volume, articulation, is coherent and is spontaneous. Mood is depressed and anxious. Affect is somewhat restricted. No delusions or hallucinations. Memory is fair. Patient is fully oriented. Associations are intact. Thinking is logical. Thought content is appropriate. Patient is able to contract for safety in our unit and denies suicidal or homicidal ideation during the interview. Insight and judgment is limited. ASSESSMENT: 1. Depression. 2. Impulse control disorder. PLAN: 1. Continue with Depakote 250 mg by mouth every morning and 500 mg by mouth nightly. 2. Continue with trazodone 50 mg by mouth nightly as needed for insomnia. 3. Continue medication management and individual and group therapy.
--- NOTE | 2016-06-11 13:22 | IPNPDOC ---
[facility] Progress Note Progress Note DATE OF SERVICE: 06/11/16 Subjective: Patient reports his mood as pretty good today. He is bright in affect and smiles at times during interview. He reports good experience from this hospitalization. Patient reports he's been able to reflect and learn coping mechanisms to employed once discharged. Patient reports no irritability, agitation, or anger outbursts since admission. Patient is med compliant and denies med s/e's. Patient is attending groups, visible and social in the milieu. Patient was social, interacting well with peers and staff. Patient denies SI/HI and AH/VH. Objective: Meds - See below. New Labs - See below. Vitals - See below. MSE: 26yo male, looks stated age, good hygeine, in home clothes, in NAD behavior - calm and cooperative eye contact - wnl speech - RRR, spontaneous mood -pretty good affect - euthymic, bright TP - linear TC - reporting good mood throughout admission, patient reported good benefit from groups and his inpatient experience perception - no perceptual issues reported or observed orientation - A&Ox4 insight - fair judgement - fair impulse control - fair Assessment - Bipolar 2 d/o, MRE manic w/o PFs Plan - Continue current psychotropic regimen as written. - Depakote level, CMP and CBCw/diff in the am. - Patient reports benefit from the lower dose trazodone, now at 25 mg by mouth daily at bedtime when necessary insomnia. ESTIMATED DATE OF DISCHARGE: 06/12/16 TIME SPENT - 30 minutes Vital Signs Vital Signs Date Time Temp Pulse Resp B/P Pulse Ox O2 Delivery O2 Flow Rate FiO2 06/11/16 06:32 95.8 96 18 103/52 Current Medications Current Medications Acetaminophen (Tylenol Tab) 650 mg Q6HP PRN PO HEADACHE or DISCOMFORT; Start at 02:45; Stop 07/06/16 at 02:44 Al Hydrox/Mg Hydrox/Simethicone (Mylanta) 30 ml Q4HP PRN PO HEARTBURN/ INDIGESTION; Start 06/06/16 at 02:45; Stop 07/06/16 at 02:44 Divalproex Sodium (Depakote) 250 mg QAM PO Last administered on 06/11/16t 08:25 ; Start 06/07/16 at 09:00; Stop 07/07/16 at 08:59 Divalproex Sodium (Depakote) 500 mg QHS PO Last administered on 06/10/16 20:52 ; Start 06/06/16 at 21:00; Stop 07/06/16 at 20:59 Home Med (Med Rec Complete!) ASDIRECTED XX ; Start 06/05/16 at 21:45; Stop at 23:53; Status DC Lorazepam (Ativan) 1 mg Q4HP PRN PO ANXIETY; Start 06/06/16 at 02:45; Stop at 02:44 Magnesium Hydroxide (Milk Of Magnesia) 30 ml DAILYPRN PRN PO CONSTIPATION; Start 06/06/16 at 02:45; Stop 07/06/16 at 02:44 Trazodone HCl (Desyrel) 25 mg QHSP PRN PO INSOMNIA; Start 06/10/16 at 11:00; Stop 07/10/16 at 10:59 Trazodone HCl (Desyrel) 50 mg QHSP PRN PO INSOMNIA Last administered on 20:40; Start 06/06/16 at 02:45; Stop 06/10/16 at 10:49; Status DC Allergies Coded Allergies: No Known Allergies (Unverified , 06/05/16) MYNOR CERVANTES MD Jun 11, 2016 13:22
--- NOTE | 2016-06-11 16:46 | IPN ---
DATE: 06/10/2016 SUBJECTIVE: "I think I am in better control." OBJECTIVE: The patient is improving slowly. The patient believes that the medication is helping to control his emotion/anger, the nice side effect from the medication. There is no evidence of psychotic symptoms. The patient is interacting well with patients and staff. No evidence of agitation or behavioral disturbances. MENTAL STATUS EXAMINATION: Patient dressed in [facility]. The patient is cooperative during the exam. He has fair eye contact. Speech is normal in rate, volume, articulation. He is coherent and is spontaneous. Mood is depressed and anxious but improving. Affect is somewhat restricted. No delusions or hallucinations. Memory is fair. The patient is fully oriented. Associations are intact. Thinking is logical. Thought content is appropriate. The patient is able to contract for safety in our unit. Insight and judgment are fair. ASSESSMENT: 1. Depression. 2. Homicidal ideation, improving. 3. Anger outbursts, also improving. PLAN: 1. Continue with Depakote 250 mg by mouth every morning and 500 mg by mouth at bedtime. 2. Will decrease trazodone to 25 mg by mouth at bedtime as needed for insomnia. May repeat times one. (The patient felt that the medication was too strong.
[2016-06-11 18:00] VITALS: BP 122/65
[2016-06-11] MEDS: DIVALPROEX 500 MG TAB PO SCH (20:39)
[2016-06-12 06:28] VITALS: BP 125/58
[2016-06-12 06:58] LABS: MEAN CORPUSCULAR HEMOGLOBIN 30.9 pg (27.0-33.0); MEAN CORPUSCULAR VOLUME 88.3 fl (80.0-96.0); RED CELL DISTRIBUTION WIDTH 12.1 % (11.5-14.5); WHITE BLOOD COUNT 4.2 K/mm3 (4.0-10.0)
[2016-06-12 07:19] LABS: EOSINOPHILS 2 % (0-5)
[2016-06-12 07:27] LABS: ALBUMIN 3.5 GM/DL (3.2-5.2); ALBUMIN/GLOBULIN RATIO 1.03 (1.00-1.93); ALKALINE PHOSPHATASE 62 U/L (45-117); ALT/SGPT 27 U/L (12-78); ANION GAP 5 MEQ/L (8-16); AST/SGOT 17 U/L (15-37); BILIRUBIN,TOTAL 0.7 MG/DL (0.2-1.0); BLOOD UREA NITROGEN 10 MG/DL (7-18); CALCIUM LEVEL 8.7 MG/DL (8.5-10.1); CARBON DIOXIDE LEVEL 31 MEQ/L (21-32); CHLORIDE LEVEL 106 MEQ/L (98-107); CREATININE FOR GFR 1.09 MG/DL (0.70-1.30); GLOMERULAR FILTRATION RATE > 60.0 (>60); GLUCOSE, FASTING 79 MG/DL (70-105); POTASSIUM SERUM 4.2 MEQ/L (3.5-5.1); SODIUM LEVEL 142 MEQ/L (136-145); TOTAL PROTEIN 6.9 GM/DL (6.4-8.2)
[2016-06-12] MEDS: DIVALPROEX 250 MG TAB PO SCH (08:29)
[2016-06-12] MEDS ORDERED: DEPA250T32 PO (09:32)
[2016-06-12] MEDS ORDERED: DEPA1TAB3 PO (09:32)
[2016-06-12] MEDS ORDERED: TRAZ25TA PO (09:32)
== END 2016-06-12 11:45 | disposition home or self-care (01) | DRG 885 ==
LOC: M ED 12:32 → M PSY 23:50
PROVIDERS: ADMIT Psychiatry & Neurology Psychiatry; ATTEND Psychiatry & Neurology Psychiatry
DX: F31.9 Bipolar disorder, unspecified (principal)

== ENCOUNTER 2019-12-22 17:26 | Inpatient (IN) | payer OTHER, SELFPAY ==
[~2019-12-22] VITALS: Ht 182.9 cm; Wt 99.8 kg
[~2019-12-22 17:26] MED LIST: DEPA1TAB3 PO; DEPA250T32 PO; TRAZ1TAB11 PO
[2019-12-22 19:03] LABS: HEMOGLOBIN 16.4 g/dl (13.5-17.5); MEAN CORPUSCULAR HEMOGLOBIN 29.9 pg (27.0-33.0); MEAN CORPUSCULAR HGB CONC 34.2 g/dl (32.0-36.5); MEAN CORPUSCULAR VOLUME 87.6 fl (80.0-96.0); PLATELET COUNT, AUTOMATED 249 10^3/uL (150-450); RED BLOOD COUNT 5.48 10^6/uL (4.30-6.10)
[2019-12-22 19:29] LABS: AMPHETAMINES LEVEL URINE NEGATIVE (NEGATIVE); BARBITURATES URINE NEGATIVE (NEGATIVE); BENZODIAZEPINES URINE NEGATIVE (NEGATIVE); CANNABINOIDS URINE POSITIVE (NEGATIVE); COCAINE METABOLITE URINE NEGATIVE (NEGATIVE); METHADONE URINE NEGATIVE (NEGATIVE); OPIATES URINE NEGATIVE (NEGATIVE); PHENCYCLIDINE URINE NEGATIVE (NEGATIVE)
[2019-12-22 19:37] LABS: ACETAMINOPHEN LEVEL < 2.0 UG/ML (10.0-30.0); ALBUMIN 4.3 GM/DL (3.2-5.2); ALT/SGPT 38 U/L (12-78); BILIRUBIN,DIRECT 0.2 MG/DL (0.0-0.2); BILIRUBIN,TOTAL 0.8 MG/DL (0.2-1.0); BLOOD UREA NITROGEN 12 MG/DL (7-18); CALCIUM LEVEL 9.4 MG/DL (8.5-10.1); CARBON DIOXIDE LEVEL 26 MEQ/L (21-32); CHLORIDE LEVEL 107 MEQ/L (98-107); CREATININE FOR GFR 1.13 MG/DL (0.70-1.30); ETHYL ALCOHOL (ETHANOL) 0.003 % (0.000-0.010); GLOMERULAR FILTRATION RATE > 60.0 (>60); GLUCOSE, FASTING 77 MG/DL (70-100); POTASSIUM SERUM 4.5 MEQ/L (3.5-5.1); SALICYLATE LEVEL < 1.7 MG/DL (5.0-30.0); SODIUM LEVEL 141 MEQ/L (136-145); TOTAL PROTEIN 7.8 GM/DL (6.4-8.2)
[2019-12-22] MEDS ORDERED: MAALOX 30 ML SUSP *UDC PO PRN (20:30)
[2019-12-22] MEDS ORDERED: OLANZapine ORAL DISINTEGRATING TAB 5MG PO PRN (20:30)
[2019-12-22] MEDS ORDERED: NICOTINE 21MG/24HR 1 EA TRANSDERMAL TD PRN (20:30)
[2019-12-22] MEDS ORDERED: traZODone 50 MG TAB PO PRN (20:30)
[2019-12-22] MEDS ORDERED: MOM 30ML SUSPENSION UDC PO PRN (20:30)
[2019-12-22] MEDS ORDERED: ACETAMINOPHEN TAB 650MG DOSE (2X325MG) PO PRN (20:30)
[2019-12-22 21:50] VITALS: BP 150/79
[2019-12-23 06:42] VITALS: BP 146/62
--- NOTE | 2019-12-23 08:52 | MHHPEPDOC ---
[facility] History & Physical History and Physical DATE OF ADMISSION: Dec 22, 2019 at 20:28 HPI: Remy presents today for a concerning suicidal statements made in an argument with his ex-. He states that he said that he wanted to kill himself because he was angry and irritated. He also states that he believes that he should not be around people, but he does not agree with the idea that he should not exist, and he is not going to kill himself. 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 He notes that he is not currently attending a college or university because he cannot do classes online and needs the in-person experience. He states he has no combat trauma. He denies having any history of hearing voices. MEDICAL HISTORY: He reports that he was admitted in 2017. Remy states that he was diagnosed with bipolar disorder by one doctor and with depression by another doctor. FAMILY HISTORY: Remy is unsure of any family history of mental illness. 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 SOCIAL HISTORY - LIVING SITUATION: He owns his home and lives with his ex-, stepdaughter, and son. He states that his ex- and him do not share a room. SOCIAL HISTORY - SMOKING: He notes that he smokes marijuana. Objective Appearance: Well nourished. Appears to be stated age. Well groomed. Behavior: Engaged. Cooperative with good eye contact. Pleasant. Affect: Full range. Appropriate to context. Mood: Appropriately reactive. Generally good. Euthymic. Speech: Spontaneous and Fluid. Normal volume. Normal rate. Motor: No gross motor abnormalities. Cognition: Alert, Attentive, and Oriented to person, place, time. Memory: No formal testing. No gross abnormalities of short or assisted memory noted during interview. Thought Form: Linear and goal directed. Thought Content: No evidence of aggressive or homicidal ideation. No thoughts of self harm. No evidence of delusions. No evidence of suicidal ideation. Perception: No perceptual abnormalities noted. Judgement: Intact as evidenced by decision making in the recent past. Insight: Good insight into symptoms and treatment options. Assessment F43.21 Adjustment disorder with depressed mood Plan Patient will be discharged soon. Plan is to be discharging the patient after observation for 48 hrs. Treatment priorities are 1) Risk for suicide Expected length of stay one to two days. Patient declines medication after disc ussion. Vital Signs Vital Signs Date Time Temp Pulse Resp B/P (MAP) Pulse Ox O2 Delivery O2 Flow Rate FiO2 12/23/19 06:42 97.5 43 18 146/62 (90) Room Air 12/22/19 21:50 98 Laboratory Data 24H Labs Laboratory Tests 2 12/22/19 18:43: Nucleated Red Blood Cells % (auto) 0.0, Anion Gap 8, Glomerular Filtration Rate > 60.0, Calcium Level 9.4, Total Bilirubin 0.8, Direct Bilirubin 0.2, Aspartate Amino Transf (AST/SGOT) 37, Alanine Aminotransferase (ALT/SGPT) 38, Alkaline Phosphatase 65, Total Protein 7.8, Albumin 4.3, Albumin/Globulin Ratio 1.2, Thyroid Stimulating Hormone (TSH) 1.920, Salicylates Level < 1.7L, Urine Opiates Screen NEGATIVE, Urine Methadone Screen NEGATIVE, Acetaminophen Level < 2.0L, Urine Barbiturates Screen NEGATIVE, Urine Phencyclidine Screen NEGATIVE, Urine Amphetamines Screen NEGATIVE, Urine Benzodiazepines Screen NEGATIVE, Urine Cocaine Metabolite Screen NEGATIVE, Urine Cannabinoids Screen POSITIVEH, Ethyl Alcohol Level 0.003 CBC/BMP Laboratory Tests 12/22/19 18:43 Medications No Active Prescriptions or Reported Meds Allergies Coded Allergies: No Known Allergies (Unverified , 06/05/16) ELADIO GALVEZ DO Dec 23, 2019 08:52
[2019-12-23 17:52] VITALS: BP 150/89
[2019-12-24 07:04] VITALS: BP 120/58
--- NOTE | 2019-12-24 08:11 | MHDSPDOC ---
[facility] Discharge Summary Discharge Summary DATE OF ADMISSION: Dec 22, 2019 at 20:28 DATE OF DISCHARGE: Dec 24, 2019 at 13:39 DISCHARGE DIAGNOSES: F33.8 Other recurrent depressive disorders CONSULTANTS INVOLVED:[ None (basic hospitalist screening)] REASON FOR ADMISSION & TREATMENT AND PROGRESS ON THE UNIT : . The patient was admitted to the inpatient mental health unit after making concerning suicidal statements. The patient was admitted and observed for 48 hours. He declined medication saying that generally he wants to do therapy and wasnt interested in medicines having previously poor reaction to them in the past. The patient did well in the unit, he was jovial and friendly. And had no behavior problems. And after his 48 hours of observation, I had no grounds to extend him further in my opinion. DISCHARGE ASSESSMENT[improved] Legal status considerations: The patient at the time of discharge did not meet criteria for involuntary admission/extension due to having a [normal] mental status exam, [fair] insight into the situation, They are engaged in the discharge process, as well as being friendly and amenable in behavioral control and havent been engaging in any observed concerning behavior or ideation recently. They decline voluntary extension/admission at this time and must be discharged in good reese, as Im unable to make a case for holding the patient against their will. They may have historical risk factors of admissions and other interactions with psychiatry however, those are not modifiable from a clinical perspective. The patient will need to be discharged in good reese. MENTAL STATUS EXAMINATION ON DISCHARGE: [General: Well dressed with good hygiene Speech: Spontaneous and fluid Thought processes: Linear and logical Thought content: Future orientated Abstract reasoning, and computation: Intact Description of associations: Intact Description of abnormal or psychotic thoughts:Denies any suicidal or homicidal ideation. Denies any auditory or visual hallucinations. Does not appear to be responding to internal stimuli. Does not appear to be endorsing any bizarre or paranoid ideation. Judgment: fair Insight: fair Orientation: Alert and orientated 3 Recent and remote memory: Intact Attention span and concentration: Intact Fund of knowledge: Adequate Mood: "okay" Affect: Euthymic with a full range] PLAN/FOLLOWUP ARRANGEMENTS: Follow up appointments made (PCP and MH in 5 days of D/C date) and safety plan completed. Safety Planning aspects completed prior to discharge [Family contact completed, educated on safe practices, instructed on removal and mitigation of dangerous means] [RN reviewed crisis hotline information and other aspects to empower patient to access care in interim before next appointment.] The amount of time spent in the coordination of care for this patient was approximately 30 minutes. Vital Signs/I&Os Vital Signs Date Time Temp Pulse Resp B/P (MAP) Pulse Ox O2 Delivery O2 Flow Rate FiO2 12/24/19 07:04 98.4 64 16 120/58 (78) 98 Room Air Medications Scheduled PRN Nicotine (Nicotine Patch) 21 Mg Patch.td24, 1 PATCH TD DAILY PRN for Nicotine withdrawl for 30 Days, #30 Allergies Coded Allergies: No Known Allergies (Unverified , 06/05/16) ELADIO GALVEZ DO Dec 24, 2019 08:11
[2019-12-24] MEDS ORDERED: NICO21PAT TD (08:27)
--- NOTE | 2019-12-24 08:36 | HPE ---
DATE OF ADMISSION: 12/22/2019 REASON FOR CONSULTATION: Medical evaluation for inpatient psychiatric admission. CHIEF COMPLAINT: Wart, left hand and left foot. HISTORY OF PRESENT ILLNESS: This is a 29-year-old male with history of depression, bipolar disorder, previously admitted to inpatient mental health unit ([facility]) in 2017 for severe depression and insomnia, anger outbursts, and agitation. He had a history of alcohol abuse with abnormal liver function tests, which have normalized over time. He has no other medical complaints aside from a wart that he does not want any medications for and would like to have evaluation by medicare sales executive as outpatient. Negative for other. REVIEW OF SYSTEMS: A 12-point system has been obtained. PAST MEDICAL HISTORY: 1. Depression. 2. Insomnia. 3. Anger outbursts. 4. Abnormal liver function tests. 5. Alcohol abuse. 6. Abnormal EKG with sinus bradycardia, rate of 52. PAST SURGICAL HISTORY: Right shoulder arthroscopy. SOCIAL HISTORY: Previously worked at [employer]. Deployed in [place] and [place]. Denies any tobacco abuse. Alcohol use, bottle over weekend. No illicit drug use. No tattoos. FAMILY HISTORY: Mother with aneurysm in 2012. Father, siblings, and children are all alive. REVIEW OF SYSTEMS: Per history of present illness (HPI). A 12-point system otherwise negative. PHYSICAL EXAMINATION: Temperature 97.5, pulse 43, respiratory rate 18, blood pressure 146/62, 98% on room air. GENERAL: Awake, alert, oriented times three. Answering questions appropriately. LUNGS: Clear to auscultation. No wheezing, rales, rhonchi. HEART: S1, S2, sinus bradycardia. ABDOMEN: Soft, nontender, nondistended. Positive bowel sounds. EXTREMITIES: No cyanosis, clubbing, or pitting edema. Patient does have a varicose wart on left dorsum of hand. LABORATORY DATA: On 12/22/2019, white count 8, hemoglobin 16, hematocrit 48, platelet count 249. Sodium 141, potassium 4.5, chloride 107, bicarbonate 26, BUN 12, creatinine 1.13, glucose 77, calcium 9.4. Total bilirubin 0.8, direct bilirubin 0.2, AST 37, ALT 38, alkaline phosphatase 65, total protein 7.8, albumin 4.3. TSH of 1.9. ASSESSMENT AND PLAN: A 29-year-old male with history of bipolar disorder, depression, admitted to inpatient mental health unit with complaint of varicose wart on left hand but does not want any treatment at this time. Wants referral to a medicare sales executive as outpatient. IMPRESSION: 1. Bipolar disorder, managed by inpatient psychiatrist. 2. Varicose wart, left hand. Outpatient referral to a medicare sales executive. Hospitalist will sign off. Please re-consult for acute medical issues. BOWEN
== END 2019-12-24 13:39 | disposition home or self-care (01) | DRG 753 ==
LOC: M ED 17:26 → M ED INP 20:28 → M PSY 21:43
PROVIDERS: ADMIT Psychiatry & Neurology Psychiatry; ATTEND Psychiatry & Neurology Addiction Medicine
DX: F33.8 Other recurrent depressive disorders (principal); R45.851 Suicidal ideations; G47.00 Insomnia, unspecified; F10.10 Alcohol abuse, uncomplicated; R00.1 Bradycardia, unspecified